=== PATIENT | male | born 1965 | race Caucasian/White ===

== ENCOUNTER 2024-03-22 14:34 | Emergency (ER) | payer OTHER, SELFPAY ==
--- OUTSIDE RECORDS SUMMARY | 2024-03-22 14:36 | XMS_ITS | Encounter Summary ---
Author Organization [facility] Address [address] [place] [address]. [place] [address] Care Team Providers Care Supply Clerk Name Role Phone Doctor, None Primary Care Provider Unavailabl e Fuad Reed MD Primary Care Provider [phone] Fuad Reed MD Unavailable Fuad Reed MD Unavailable Velia Casanova-Nakia Unavailable Fuad Reed MD Unavailable Encounter Details Date Type Department Care Team (Late st Contact Info) Description 04/01/2011 Office Visit-[facility] [address] [place] [address] [place] [address] [place] [address] [address] [place], [place] [id number] Social History Tobacco Use Types Packs/Day Years Used Date Smoking Tobacco: Every Day Cigarettes Smokeless Tobacco: Never Alcohol Use Standard Drinks/Week Comments Yes 0 (1 standard drink = 0.6 oz pur e alcohol) occ Sex and Gender Information Value Date Recorded Sex Assigned at Not on file Legal Sex 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 - Bicuspid Aortic Valve, 746.4 ALLERGIES MEDICATIONS (prior to changes made today) 1. Fish Oil 360-1,200 mg Capsule, 1 p.o. daily 2. multivitamin Capsule, 1 p.o. daily 3. vitamin A 10,000 unit Capsule, Dose/instruction UNKNOWN 4. vitamin A-vitamin C-vit E-min Tablet, 1 p.o. daily 5. Vitamin B-12 100 mcg Tablet, 1 p.o. daily 6. Vitamin B-6 100 mg Tablet, 1 p.o. daily 7. vitamin E 400 unit Tablet, 1 p.o. daily 8. zinc gluconate 30 mg Tablet, 1 p.o. daily CHIEF COMPLAINTS bicuspid aortic valve HISTORY OF PRESENT ILLNESS INDICATION FOR CONSULT: Bicuspid aortic valve. The patient is a 45-year-old with a family history of possible bicuspid aortic valve in his sister who also had presumptive cardiomyopathy. He had also been diagnosed with bicuspid aortic valve on echocardiogram 02/07/11. He comes in to discuss the test results. On that echocardiogram, he did have bicuspid aortic valve with mild regurgitation and no stenosis. He did have a 4.2 cm ascending aorta (dilated.) His LV chamber was not abnormal. There was no pulmonary hypertension. He denies any lower extremity claudication. No symptoms of coarctation. He occasionally gets lightheaded but no significant palpitations. He does have a history of syncopeat the sight of blood. In discussion regarding the bicuspid aortic valve, he did have a mild vasovagal event. He describes previous workup at [facility] where he had what sounds like a transesophageal echocardiogram. It is unclear the circumstances around that event. He denies any history of atrial fibrillation. He denies any dyspnea on exertion or exertional chest discomfort. He does have atypical chest discomfort that may be related to gastritis or reflux. He does note that his atypical chest discomfort isprecipitated by certain types of spicy foods. It is not reproduced with exertion. PAST HISTORY Past Medical Illnesses: headache, smoker Past Cardiac Illnesses: murmur, bicuspid aortic valve, chest pain Surgeries/Procedures - General: rhinoplasty Cardiology Procedures-NonInvasive: echocardiogram Jan 2011 PMHx Echo Results: 01/26 aortic valve is bicuspid, mild AR, ascending aorta mildly dilated Left Ventricular Ejection Fraction: 01/26 60-65% per echo 01/26 60-65% per echo FAMILY HISTORY: Family - sister with bicuspid valve and cardiomyo; SOCIAL HISTORY Alcohol Use - weekends only; Smoking - smokes cigarettes,; Diet - regular diet; Exercise - active at work; Seat Belt Use - always; 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 INTEGUMENTARY denies any change in hair or nails, rashes, or skin lesions. EYES denies diplopia, history of glaucoma or visual field defects. EARS, NOSE, THROAT, MOUTH denies any hearing loss, epistaxis, hoarseness or difficulty speaking. RESPIRATORY denies dyspnea, cough, wheezing or hemoptysis. CARDIOVASCULAR chest pain, once in a while ABDOMINAL denies ulcer disease, hematochezia or melena. MUSCULOSKELETAL arthritis of the right wrist(s) NEUROLOGICAL headaches, effects vision sometimes PSYCHIATRIC denies any history of depression, substance abuse or change in cognitive functions. ENDOCRINE denies any history of thyroid disease or diabetes mellitus. HEMATOLOGICAL/IMMUNOLOGIC denies any food allergies, seasonal allergies, bleeding disorders. PHYSICAL EXAMINATION VITAL SIGNS: Blood Pressure: 122/66Sitting, Left arm, large cuff Pulse- .00/min. Weight- 147.80 lbs. Height- 68.5 CONSTITUTIONAL cooperative, alert and oriented,well developed, well nourished, in no acute distress. SKIN warm and dry to touch, no apparent skin lesions, or masses noted. HEAD normocephalic, atraumatic EYES Pupils equal and round, conjunctivae and lids unremarkable, sclera white, no xanthalasma ENT no pallor or cyanosis, dentition good NECK carotid pulses are full and equal bilaterally, JVP normal, no carotid bruit, no delay of carotid upstroke, no thyromegaly CHEST normal symmetry, no tenderness to palpation, normal respiratory excursion, no intercostal retraction, no use of accessory muscles, clear to auscultation and percussion. CARDIAC regular rhythm, S1 normal, S2 normal, No S3 or S4, grade I/ early peaking systolic murmur at RUSB. I/IV holodiastolic murmur at LLSB. ABDOMEN abdomen soft, bowel sounds normoactive, no masses, no hepatosplenomegaly, non- tender, no bruits PERIPHERAL PULSES pulses full and equal in all extremities, no bruits auscultated. EXTREMITIES & BACK no deformities, clubbing, cyanosis, erythema or edema observed. There are no spinal abnormalities noted. Normal muscle strength and tone. NEUROLOGICAL no gross motor deficits noted, affect anxious, oriented to time, person and place. MEDICATIONS UPDATED/STARTED TODAY: Fish Oil 360-1,200 mg Capsule, 1 p.o. daily, #0 (Zero) multivitamin Capsule, 1 p.o. daily, #0 (Zero) vitamin A 10,000 unit Capsule, Dose/instruction UNKNOWN, #0 (Zero) vitamin A-vitamin C-vit E-min Tablet, 1 p.o. daily, #0 (Zero) Vitamin B-12 100 mcg Tablet, 1 p.o. daily, #0 (Zero) Vitamin B-6 100 mg Tablet, 1 p.o. daily, #0 (Zero) vitamin E 400 unit Tablet, 1 p.o. daily, #0 (Zero) zinc gluconate 30 mg Tablet, 1 p.o. daily, #0 (Zero) IMPRESSIONS/PLAN 1. Bicuspid aortic valve. The patient has bicuspid aortic valve without stenosis. Only mild regurgitation. Would continue to follow this with routine transthoracic echocardiograms yearly until stability is documented. If stable, could space out to every two to three years. More importantly, he doeshave ascending aortic dilatation in the absence of hypertension. I would keep a close eye on his aorta as bicuspid aortic valve is associated with aortopathy with higher propensity towards rupture atsmall dimensions than traditional thoracic aneurysms. I would consider action at around 50-55 mm indiameter. Again, we will recheck in approximately one year. 2. Atypical chest pain, not exertional,could be associated with gastritis or reflux. 3. Nicotine abuse. Urged to quit to avoid blood pressure swings and premature calcification of his aortic valve. 4. We will follow up in one year with a transesophageal echocardiogram. TODAYS ORDERS 1. Return Visit 1 year 2. 2D, color flow, doppler 1 year Ryder De Leon MD documented in this encounter Plan of Treatment Not on file documented as of this encounter Visit Diagnoses Not on filedocumented in this encounter Additional Health Concerns Infection Onset Date Last Indicated Resolved Time Rule Out COVID-19 02/22/2021 02/22/2021 02/22/2021 11:46 PM [employer] COVID-19 02/22/2021 02/22/2021 03/15/2021 11:3 9 PM [employer] documented as of this encounter Care Teams Supply Clerk Relationship Specialty Start Date End Date Josh Montanez MD PCP - General 04/02/01 02/02/13 [place] [address] [place] [id number] PCP - General Family Practice 02/03/13 [place] [address] [place] [id number] PCP - Assigned PCP 05/04/16 04/20/18 [place] [address] [place] [id number] Assigned PCP 05/04/16 08/28/18 Velia Casanova PA-C [address] [place] [address] Assigned PCP 08/29/18 08/20/19 [place] [address] [place] [address] [id number] Assigned PCP 08/21/19 documented as of this encounter
--- OUTSIDE RECORDS SUMMARY | 2024-03-22 14:37 | XMS_ITS | Encounter Summary ---
Author Organization [facility] Address [address] [place] [id number] Care Team Providers Care Engine Buildup Mechanic Name Role Phone Fuad Reed MD Primary Care Provider [phone] Fuad Reed MD Unavailable Reason for Visit * Reason Onset Date Comments Appointment 02/13/2022 Bicuspid aortic valve. Encounter Details Date Type Department Care Team (Late st Contact Info) Description 02/13/2022 Telephone [facility] [id number] [place] [address] [address] [place] [address] None Appointment (Bicuspid aortic valve.) Social History Tobacco Use Types Packs/Day Years Used Date Smoking Tobacco: Every Day Cigarettes 0.3 42 Smokeless Tobacco: Never Comments:since age 13 Alcohol Use Standard Drinks/Week Comments Yes 3 (1 standard drink = 0.6 oz pur e alcohol) 3-6 per week PHQ-2 Answer Date Recorded PHQ-2 Score 0 02/13/2022 Sex and Gender Information Value Date Recorded Sex Assigned at Not on file 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 No / Unsure 02/13/2022 8:38 AM BAG ADJUSTER documented as of this encounter Miscellaneous Notes * Telephone Encounter - Liat Santoyo - 02/13/2022 1:24 PM CST [facility] Call Center Phone Message May a detailed message be left on voicemail: yes Reason for Call: Appointment Intake Referring Provider Name: Dr. Fuad Reed Diagnosis and/or Symptoms: Bicuspid aortic valve Please call pt to coordinate Echo/ appt. Action Taken: Other: cardio Travel Screening: Not Applicable ADJUSTER documented in this encounter Plan of Treatment Not on file documented as of this encounter Visit Diagnoses Not on filedocumented in this encounter Care Teams Engine Buildup Mechanic Relationship Specialty Start Date End Date Fuad Reed MD [address] [place] [id number] PCP - General Family Practice 02/03/13 Fuad Reed MD [address] [place] [id number] Assigned PCP 08/21/19 documented as of this encounter
--- OUTSIDE RECORDS SUMMARY | 2024-03-22 14:37 | XMS_ITS | Clinical Summary ---
Author Organization [facility] Address [address] [place] [address] Care Team Providers Care Sponge Fisherman Name Role Phone Fuad Reed MD Primary Care Provider [phone] Fuad Reed MD Unavailable Allergies No known active allergies Medications Multiple Vitamin (MULTIVITAMIN S) CAPS Take by mouth daily 3 Active VITAMIN E COMPLEX PO Take by mouth daily Active Pyridoxine HCl (VITAMIN B6 PO) Take by mouth daily Active Cyanocobalamin (VITAMIN B-12 PO) Take by mouth daily Active [place]-3 Fatty Acids (OMEGA-3 FISH OIL PO) Take by mouth daily Active ARGININE PO Take by mouth daily Active CREATINE POIndications:E levated prostate specific antigen (PSA) Active fluocinonide (LIDEX) 0.05 % external solution APPLY TOPICALLY TWICE DAILY 0 Active Zinc-Vitamin C (ZINC + VITAMIN C) 20-120 MG LOZG Active Vitamin D, Cholecalciferol , 25 MCG (1000 UT) TABSIndications :Medication monitoring encounter Take 1 tablet (25 mcg) by mouth daily 2 Active Active Problems Patient Care Coordination No te Formatting of this note migh t be different from the original. [email or web address] Problem Noted Date Diagnosed Date Tobacco dependence 02/02/2018 Aortic root dilation 01/31/2016 Tobacco abuse 01/31/2016 Bicuspid aortic valve 02/18/2011 History of cardiac murmur 02/05/2011 Headache 02/05/2011 Overview (11/17/2014): Problem list name updated by automated process. Provider to review CARDIOVASCULAR SCREENING; LDL GOAL LESS THAN 130 Raynaud's syndrome Overview (02/02/2014): mild Colon polyp Overview (03/02/2014): polyp x 1 Ascending aorta dilatation Overview (01/29/2017): Dr De Leon - mild BPH (benign prostatic hyperplasia) Urinary retention Overview (03/23/2017): Dr Nino [place] of multiple sites Resolved Problems Problem Noted Date Diagnosed Date Resolved Date Aortic valve disease 016 Overview (03/07/2014): aortic valve is bicuspid, mild AR, ascending aorta mildly dilated Immunizations Name Administration Dates Next Due Influenza (IIV3) PF 12/01/2016, 6,12/09/2013,2012,12/12/2011,12/04/2010 Influenza Vaccine (Flucelvax Quadrivalent) 12/02/2017 Influenza Vaccine >6 months,quad, PF ,01/11/2021,12/07/2018,2016,11/30/2014 Influenza Vaccine, 6+MO IM (QUADRIVALENT W/PRESERVATIVES) 12/07/2018 Pneumococcal 23 valent 01/29/2017 TD,PF 7+ (Tenivac) 01/26/2006 TDAP Vaccine (Adacel) 02/02/2014 TDAP Vaccine (Boostrix) 02/02/2014 Td (Adult), Adsorbed 01/26/2006 Family History Medical History Relation Comments Other - See Comments Brother disabilitie s Family History Negative Father Family History Negative Mother Cardiovascular Sister 1 cardiomegaly, mu rmur, bicuspid AV ? Colon Cancer No family hx of Coronary Artery Disease No family hx of Diabetes No family hx of Hyperlipidemia No family hx of Hypertension No family hx of Prostate Cancer No family hx of Thyroid Disease No family hx of Relation Status Comments Brother Father (Age 90) Pneumonia Maternal Grandfather Maternal Grandmother Mother (Age 92) Paternal Grandfather Paternal Grandmother Sister 1 Alive Sister 2 Alive Sister 3 Alive Sister 4 Alive Sister 5 Alive Sister 6 Alive Social History Tobacco Use Types Packs/Day Years Used Date Smoking Tobacco: Every Day Cigarettes 0.3 42 Smokeless Tobacco: Never Tobacco Cessation:Counseling Given: No Comments:since age 13 Alcohol Use Standard Drinks/Week Comments Yes 3 (1 standard drink = 0.6 oz pur e alcohol) 3-6 per week PHQ-2 Answer Date Recorded PHQ-2 Score 0 02/13/2022 Adolescent Education Answer Date Record ed Getting School Help Needed Not on file 11/22 Sex and Gender Information Value Date Recorded Sex Assigned at Not on file Legal Sex Male 3:37 AM CELL EFFICIENCY SUPERVISOR Gender Identity Not on file Sexual Orientation Not on file 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 Not on file Not on file Not on file Last Filed Vital Signs Vital Sign Reading Time Taken Comments Blood Pressure 102/60 02/13/2022 9:05 AM CELL EFFICIENCY SUPERVISOR Pulse 69 02/13/2022 9:05 AM CELL EFFICIENCY SUPERVISOR Temperature 36.1 C (97 F) 02/13/2022 9:05 AM CELL EFFICIENCY SUPERVISOR Respiratory Rate 20 10/18/2020 7:07 AM CDT Oxygen Saturation 98% 02/13/2022 9:05 AM CELL EFFICIENCY SUPERVISOR Inhaled Oxygen Concentration - - Weight 67.1 kg (148 lb) 02/13/2022 9:05 AM CELL EFFICIENCY SUPERVISOR Height 172.7 cm (5' 8) 02/13/2022 9:05 AM CELL EFFICIENCY SUPERVISOR Body Mass Index 22.5 02/13/2022 9:05 AM CELL EFFICIENCY SUPERVISOR Plan of Treatment Health Maintenance Due Date Last Done Comments CT COLONOGRAPHY 1965 FLEX SIG 1965 sDNA (Cologuard) 1965 LUNG CANCER SCREENING 10/01/2013 ZOSTER IMMUNIZATION (1 of 2) 10/01/2013 Pneumococcal Vaccine: 50+ Years (2 of 2 - PCV) 01/29/2018 01/29/2017 ANNUAL REVIEW OF HM ORDERS 02/13/2023 02/13/2022 YEARLY PREVENTIVE VISIT 02/13/2023 02/14/20 22, 10/18/2020, 09/20/2019, Additional history exists FIT 02/14/2023 02/14/2022, 08/2020, 11/08/2019, Additional history exists RSV VACCINE (1 - Risk 60-74 years 1-dose series) 2023 COVID-19 Vaccine (1 - 2023- season) 2023 INFLUENZA VACCINE (#1) 2023 , 01/11/2021, 12/07/2018, Additional history exists DTAP/TDAP/TD IMMUNIZATION (3 - Td or Tdap) 02/03/2024 02/02/2014, 02/02/2014, 01/26/2006, Additional history exists PHQ-2 (once per calendar year) 2024 02/13/2022, 02/18/2021, 10/18/2020, Additional history exists ADVANCE CARE PLANNING 09/19/2024 09/20/2019 GLUCOSE 02/13/2025 02/13/2022, 0 03/2020, 09/20/2019, Additional history exists COLONOSCOPY 06/13/2026 06/13/2016, 05/18, 03/02/2014, Additional history exists COLORECTAL CANCER SCREENING 06/13/2026 LIPID 02/13/2027 02/13/2022, 0 03/2020, 09/20/2019, Additional history exists HEPATITIS C SCREENING Completed 02/03/2013 HIV SCREENING Completed 04/28/2016, 02/03/2013 HPV IMMUNIZATION Aged Out No longer e ligible based on patient's age to complete this topic MENINGITIS IMMUNIZATION Aged Out No l onger eligible based on patient's age to complete this topic RSV MONOCLONAL ANTIBODY Aged Out No l onger eligible based on patient's age to complete this topic Procedures Procedure Name Priority Date/Time Associated Diagnosis Comments FECAL COLORECTAL CANCER SCREEN FIT Routine 02/14/2022 9:00 AM CELL EFFICIENCY SUPERVISOR Routine general medical examination at a health care facility Polyp of colon, unspecified part of colon, unspecified type Screen for colon cancer COMPREHENSIVE METABOLIC PANEL Routine 02/13/2022 9:56 AM CELL EFFICIENCY SUPERVISOR Routine general medical examination at a health care facility CARDIOVASCULAR SCREENING; LDL GOAL LESS THAN 130 Osteopenia of multiple sites Raynaud's disease without gangrene Medication monitoring encounter LIPID REFLEX TO DIRECT LDL PANEL Routine 02/13/2022 9:56 AM CELL EFFICIENCY SUPERVISOR Routine general medical examination at a health care facility Bicuspid aortic valve CARDIOVASCULAR SCREENING; LDL GOAL LESS THAN 130 Aortic root dilation Ascending aorta dilatation History of cardiac murmur Medication monitoring encounter COLONOSCOPY Routine 06/13/2016 11:47 AM CDT HIV ANTIGEN ANTIBODY COMBO Routine 04/28/2016 5:28 PM CDT Diarrhea, unspecified type Nausea Stomach cramps, generalized Weight loss HEPATITIS C ANTIBODY Routine 02/03/2013 8:45 AM CELL EFFICIENCY SUPERVISOR Routine general medical examination at a health care facility from Last 3 Months or Most Recently Relevant to Health Maintenance Results * Fecal colorectal cancer screen FIT (02/14/2022 9:00 AM CELL EFFICIENCY SUPERVISOR) Occult Blood Screen FIT Negative Negative 02/18/2022 8:57 PM CELL EFFICIENCY SUPERVISOR [facility] Stool RECTAL CONTENTS / Unknown Non-blood Collection / Unknown 02/14/2022 9:00 AM CELL EFFICIENCY SUPERVISOR 02/18/2022 5:04 PM CELL EFFICIENCY SUPERVISOR us Fuad Reed MD LAB - STOOLS ORDERABLES Final Re sult [facility] [address] [facility], [address] [place] [phone], [facility] [phone] * (ABNORMAL) Lipid panel reflex to direct LDL Fasting (02/13/2022 9:56 AM CELL EFFICIENCY SUPERVISOR) Cholesterol 200(H) <200 mg/dL 02/13/2022 5:34 PM CELL EFFICIENCY SUPERVISOR [facility] Triglycerides 157(H) <150 mg/dL 02/13/2022 5:34 PM CELL EFFICIENCY SUPERVISOR [facility] Direct Measure HDL 45 >=40 mg/dL 02/13/2022 5:34 PM CELL EFFICIENCY SUPERVISOR [facility] LDL Cholesterol Calculated 124(H) <=100 mg/dL 02/13/2022 5:34 PM CELL EFFICIENCY SUPERVISOR [facility] Non HDL Cholesterol 155(H) <130 mg/dL 02/13/2022 5:34 PM CELL EFFICIENCY SUPERVISOR [facility] Blood STRUCTURE OF RIGHT UPPER LIMB / Unknown Venipuncture / Unknown 02/13/2022 9:56 AM CELL EFFICIENCY SUPERVISOR 02/13/2022 9:56 AM CELL EFFICIENCY SUPERVISOR Narrative [facility] - 02/13/2022 5:34 PM CELL EFFICIENCY SUPERVISOR Cholesterol Desirable: <200 mg/dL Triglycerides Normal: Less than 150 mg/dL Borderline High: 150-199 mg/dL High: 200-499 mg/dL Very High: Greater than or equal to 500 mg/dL Direct Measure HDL Female: Greater than or equal to 50 mg/dL Male: Greater than or equal to 40 mg/dL LDL Cholesterol Desirable: <100mg/dL Above Desirable: 100-129 mg/dL Borderline High: 130-159 mg/dL High: 160-189 mg/dL Very High: >= 190 mg/dL Non HDL Cholesterol Desirable: 130 mg/dL Above Desirable: 130-159 mg/dL Borderline High: 160-189 mg/dL High: 190-219 mg/dL Very High: Greater than or equal to 220 mg/dL us Fuad Reed MD LAB - BLOOD ORDERABLES Final Res ult [facility] [facility] [address] [facility], [address] [place] [phone], [facility] [phone] * Comprehensive metabolic panel (02/13/2022 9:56 AM CELL EFFICIENCY SUPERVISOR) Sodium 139 136 - 145 mmol/L 02/13/2022 5:34 PM CELL EFFICIENCY SUPERVISOR [facility] Potassium 4.4 3.4 - 5.3 mmol/L 02/13/2022 5:34 PM CELL EFFICIENCY SUPERVISOR [facility] Chloride 102 98 - 107 mmol/L 02/13/2022 5:34 PM CELL EFFICIENCY SUPERVISOR [facility] Carbon Dioxide (CO2) 24 22 - 29 mmol/L 02/13/2022 5:34 PM CELL EFFICIENCY SUPERVISOR [facility] Anion Gap 13 7 - 15 mmol/L 02/13/2022 5:34 PM CELL EFFICIENCY SUPERVISOR [facility] Urea Nitrogen 12.4 6.0 - 20.0 mg/dL 02/13/2022 5:34 PM CELL EFFICIENCY SUPERVISOR [facility] Creatinine 0.94 0.67 - 1.17 mg/dL 02/13/2022 5:34 PM CELL EFFICIENCY SUPERVISOR [facility] Calcium 9.4 8.6 - 10.0 mg/dL 02/13/2022 5:34 PM CELL EFFICIENCY SUPERVISOR [facility] Glucose 86 70 - 99 mg/dL 02/13/2022 5:34 PM CELL EFFICIENCY SUPERVISOR [facility] Alkaline Phosphatase 68 40 - 129 U/L 02/13/2022 5:34 PM CELL EFFICIENCY SUPERVISOR [facility] AST 23 10 - 50 U/L 02/13/2022 5:34 PM CELL EFFICIENCY SUPERVISOR [facility] ALT 17 10 - 50 U/L 02/13/2022 5:34 PM CELL EFFICIENCY SUPERVISOR [facility] Protein Total 7.1 6.4 - 8.3 g/dL 02/13/2022 5:34 PM CELL EFFICIENCY SUPERVISOR [facility] Albumin 4.4 3.5 - 5.2 g/dL 02/13/2022 5:34 PM CELL EFFICIENCY SUPERVISOR [facility] Bilirubin Total 0.5 <=1.2 mg/dL 02/13/2022 5:34 PM CELL EFFICIENCY SUPERVISOR [facility] GFR Estimate >90 >60 mL/min/1.7 3m2 02/13/2022 5:34 PM CELL EFFICIENCY SUPERVISOR [facility] Comment:Effective January 172020 eGFRcr in adults is calculated using the 2020 CKD-EPI creatinine equation which includes age and gender (Keyanna et al., NEJM, DOI: 10.1056/DOILth9413799) Blood STRUCTURE OF RIGHT UPPER LIMB / Unknown Venipuncture / Unknown 02/13/2022 9:56 AM CELL EFFICIENCY SUPERVISOR 02/13/2022 9:56 AM CELL EFFICIENCY SUPERVISOR us Fuad Reed MD LAB - BLOOD ORDERABLES Final Res ult [facility] [place] [facility] [address] [facility], [address] [place] [phone], [facility] [phone] * COLONOSCOPY (06/13/2016 11:47 AM CDT) COLONOSCOPY [facility] Patient Name: Herrera Choi Procedure Date: 06/13/2016 11:47 AM Date of : 1965 Admit Type: Outpatient Age: 50 Gender: Male Attending MD: Gonzalez Tanner MD Total Sedation Time: __27___minutes continuous bedside 1:1 Instrument Name: 136 Procedure: Colonoscopy Indications: Weight loss Providers: Gonzalez Tanner MD (Doctor) Referring MD: Fuad Reed MD (Referring MD) Medicines: Midazolam 2 mg IV, Fentanyl 100 micrograms IV Complications: No immediate complications. Procedure: Pre-Anesthesia Assessment: - Prior to the procedure, a History and Physical was performed, and patient medications and allergies were reviewed. The patient is competent. The risks and benefits of the procedure and the sedation options and risks were discussed with the patient. All questions were answered and informed consent was obtained. Patient identification and proposed procedure were verified by the physician in the procedure room. Mental Status Examination: alert and oriented. Airway Examination: normal oropharyngeal airway and neck mobility. Respiratory Examination: clear to auscultation. CV Examination: normal. Prophylactic Antibiotics: The patient does not require prophylactic antibiotics. Prior Anticoagulants: The patient has taken no previous anticoagulant or antiplatelet agents. ASA Grade Assessment: II - A patient with mild systemic disease. After reviewing the risks and benefits, the patient was deemed in satisfactory condition to undergo the procedure. The anesthesia plan was to use moderate sedation / analgesia (conscious sedation). Immediately prior to administration of medications, the patient was re-assessed for adequacy to receive sedatives. The heart rate, respiratory rate, oxygen saturations, blood pressure, adequacy of pulmonary ventilation, and response to care were monitored throughout the procedure. The physical status of the patient was re-assessed after the procedure. After obtaining informed consent, the colonoscope was passed under direct vision. Throughout the procedure, the patient's blood pressure, pulse, and oxygen saturations were monitored continuously. The Olympus Peds Colonoscope Model #[id number]-H190L, [place]#[id number], SN#[id number] was introduced through the anus and advanced to the cecum, identified by appendiceal orifice and ileocecal valve. The colonoscopy was performed without difficulty. The patient tolerated the procedure well. The quality of the bowel preparation was good. Findings: The perianal and digital rectal examinations were normal. A few small-mouthed diverticula were found in the sigmoid colon. The exam was otherwise without abnormality on direct and retroflexion views. Impression: - Diverticulosis in the sigmoid colon. - The examination was otherwise normal on direct and retroflexion views. Recommendation: - Repeat colonoscopy in 10 years for screening purposes. Procedure Code(s): --- Professional --- 68309, Colonoscopy, flexible, proximal to splenic flexure; diagnostic, with or without collection of specimen(s) by brushing or washing, with or without colon decompression (separate procedure) Diagnosis Code(s): --- Professional --- R63.4, Abnormal weight loss CPT copyright 2013 [employer]. All rights reserved. The codes documented in this report are preliminary and upon medical coder review may be revised to meet current compliance requirements. Electronically signed by Gonzalez Tanner MD __ Gonzalez Tanner MD 06/13/2016 12:49 PM I was physically present for the entire viewing portion of the exam. Gonzalez Tanner MD Number of Addenda: 0 Note Initiated On: 06/13/2016 11:47 AM Procedure Date: 06/13/2016 11:47:01 AM Scope Withdrawal Time: 0 hours 6 minutes 27 seconds Total Procedure Duration: 0 hours 12 minutes 29 seconds Estimated Blood Loss: Scope In: 12:30:46 PM Scope Out: 12:43:15 PM RADIOLOGY RESULTS 06/13/2016 11:4 7 AM CDT us Fuad Reed MD PROCEDURES Final Result RADIOLOGY RESULTS * HIV Antigen Antibody Combo (04/28/2016 5:28 PM CDT) HIV Antigen Antibody Combo Nonreactive HIV-1 p24 Ag & HIV-1/HIV-2 Ab Not Detected NR [facility] Blood specimen (specimen) 04/28/2016 5:28 PM CDT 04/28/2016 5:34 PM CDT us Fuad Reed MD LAB - BLOOD ORDERABLES Final Res ult Performing Organization Address City/[facility]/ZIP Co de Phone Number [facility] [address] [place] [address] * Hepatitis C antibody (02/03/2013 8:45 AM CELL EFFICIENCY SUPERVISOR) Hepatitis C Antibody Negative NEG [facility] Blood specimen (specimen) 02/03/2013 8:45 AM CELL EFFICIENCY SUPERVISOR 02/03/2013 8:46 AM CELL EFFICIENCY SUPERVISOR us Fuad Reed MD LAB - BLOOD ORDERABLES Final Res ult Performing Organization Address City/[facility]/ZIP Co de Phone Number [facility] [address] [place] [address], [facility] from Last 3 Months or Most Recently Relevant to Health Maintenance Insurance BCBS OUT OF STATE Care Teams Sponge Fisherman Relationship Specialty Start Date End Date Fuad Reed MD [address] [place] [id number] PCP - General Family Practice 02/03/13 Fuad Reed MD [address] [place] [address] [id number] Assigned PCP 08/21/19
--- OUTSIDE RECORDS SUMMARY | 2024-03-22 14:37 | XMS_ITS | Encounter Summary ---
Author Organization [facility] Address [address] [place] [address] Care Team Providers Care Chief Investment Officer Name Role Phone Doctor, None Primary Care Provider Unavailabl e Fuad Reed MD Primary Care Provider [phone] Fuad Reed MD Unavailable Fuad Reed MD Unavailable Velia Casanova PA-C Unavailable Fuad Reed MD Unavailable Encounter Details Date Type Department Care Team (Late st Contact Info) Description 01/29/2012 [facility] [address] [phone] [facility] Social History Tobacco Use Types Packs/Day Years Used Date Smoking Tobacco: Every Day Cigarettes Smokeless Tobacco: Never Alcohol Use Standard Drinks/Week Comments Yes 0 (1 standard drink = 0.6 oz pur e alcohol) occ Sex and Gender Information Value Date Recorded Sex Assigned at Not on file Legal Sex Male 3:37 AM SCRAP SEPARATOR Gender Identity Not on file Sexual Orientation Not on file documented as of this encounter Plan of Treatment Not on file documented as of this encounter Visit Diagnoses Not on filedocumented in this encounter Additional Health Concerns Infection Onset Date Last Indicated Resolved Time Rule Out COVID-19 02/22/2021 02/22/2021 02/22/2021 11:46 PM SCRAP SEPARATOR COVID-19 02/22/2021 02/22/2021 03/15/2021 11:3 9 PM SCRAP SEPARATOR documented as of this encounter Care Teams Chief Investment Officer Relationship Specialty Start Date End Date Josh Montanez MD PCP - General 04/02/01 02/02/13 Fuad Reed MD [address] [place] [id number] PCP - General Family Practice 02/03/13 Fuad Reed MD [address] [place] [id number] PCP - Assigned PCP 05/04/16 04/20/18 Fuad Reed MD [address] [place] [address] Assigned PCP 05/04/16 08/28/18 Velia Casanova PA-C [id number] [place] [address] Assigned PCP 08/29/18 08/20/19 Fuad Reed MD [address] [place] [id number] Assigned PCP 08/21/19 documented as of this encounter
--- OUTSIDE RECORDS SUMMARY | 2024-03-22 14:37 | XMS_ITS | Encounter Summary ---
Author Organization [facility] Address [address] [place] [address] Care Team Providers Care Pinner Printed Circuit Boards Name Role Phone None Reported, Pcp Primary Care Provider Unavail able Encounter Details Date Type Department Care Team (Latest Contact Info) Description 02/05/2024 10:48 AM COAGULATOR - 02/05/2024 11:59 PM COAGULATOR Hospital Encounter Department of Laboratory Medicine in [place], [place] [address] [place] [address] Jaya Little M.D., Ph.D. [address] [phone] Other Chest Pain Discharge Disposition: Home or Self Care Social History Tobacco Use Types Packs/Day Years Used Date Smoking Tobacco: Every Day Cigarettes Alcohol Use Standard Drinks/Week Comments Yes 0 (1 standard drink = 0.6 oz pur e alcohol) weekends Dental Answer Date Recorded Dental: Regular Dentist Unknown 11/30/19 23 Sex and Gender Information Value Date Recorded Sex Assigned at Not on file Legal Sex Male 4:52 PM COAGULATOR Gender Identity Not on file Sexual Orientation Not on file documented as of this encounter Medications at Time of Discharge ascorbic acid, vitamin C, (Vitamin C) 100 mg tablet Take 1 tablet by mouth daily. 01/26/2006 atorvastatin (Lipitor) 20 mg tablet Take 1 tablet by mouth at bedtime. 03/30/2023 03/29/2024 pyridoxine, vitamin B6, (Vitamin B-6) 50 mg tablet Take 1 tablet by mouth daily. 01/26/2006 documented as of this encounter Plan of Treatment Not on file documented as of this encounter Procedures Procedure Name Priority Date/Time Associated Diagnosis Comments CREATININE WITH EGFR, S/P Routine 02/05/2024 10:54 AM COAGULATOR Other Chest Pain documented in this encounter Results * Creatinine with Estimated GFR (02/05/2024 10:54 AM COAGULATOR) Creatinine 0.88 0.74 - 1.35 mg/dL 02/05/2024 11:41 AM COAGULATOR NPR[facility] Estimated GFR (eGFR) >90 >=60 mL/min/BSA 02/05/2024 11:41 AM COAGULATOR NPRG Comment: Estimated GFR calculated using the 2020 CKD_EPI creatinine equation. Blood (Blood, Venous) 02/05/2024 10:54 AM COAGULATOR 02/05/2024 11:17 AM COAGULATOR us Jaya Little M.D., Ph.D. LAB BLOOD ADD-ON Final Result [facility] [address] [place] [address], [place] NPRG [facility] [address] [place] [address] documented in this encounter Visit Diagnoses Diagnosis Other Chest Pain documented in this encounter Care Teams [employer] Bo[employer] Relationship Specialty Start Date End Date None Reported, Pcp PCP - General Family Medicine 11/06/23 documented as of this encounter
--- OUTSIDE RECORDS SUMMARY | 2024-03-22 14:37 | XMS_ITS | Encounter Summary ---
Author Organization [facility] Address [address] [place] [address] Care Team Providers Care Labor Arbitrator Name Role Phone Doctor, None Primary Care Provider Unavailabl e Fuad Reed MD Primary Care Provider [phone] Fuad Reed MD Unavailable Fuad Reed MD Unavailable Velia Casanova PA-C Unavailable Fuad Reed MD Unavailable Encounter Details Date Type Department Care Team (Late st Contact Info) Description 02/11/2012 [facility] [address] [address] [facility] Social History Tobacco Use Types Packs/Day Years Used Date Smoking Tobacco: Every Day Cigarettes Smokeless Tobacco: Never Alcohol Use Standard Drinks/Week Comments Yes 0 (1 standard drink = 0.6 oz pur e alcohol) occ Sex and Gender Information Value Date Recorded Sex Assigned at Not on file Legal Sex Male 3:37 AM PEOPLESOFT CRM DEVELOPER Gender Identity Not on file Sexual Orientation Not on file documented as of this encounter Plan of Treatment Not on file documented as of this encounter Visit Diagnoses Not on filedocumented in this encounter Additional Health Concerns Infection Onset Date Last Indicated Resolved Time Rule Out COVID-19 02/22/2021 02/22/2021 02/22/2021 11:46 PM PEOPLESOFT CRM DEVELOPER COVID-19 02/22/2021 02/22/2021 03/15/2021 11:3 9 PM PEOPLESO[employer] CRM DEVELOPER documented as of this encounter Care Teams Labor Arbitrator Relationship Specialty Start Date End Date Josh Montanez MD PCP - General 04/02/01 02/02/13 Fuad Reed MD [address] [place] [id number] PCP - General Family Practice 02/03/13 Fuad Reed MD [address] [place] [address] PCP - Assigned PCP 05/04/16 04/20/18 Fuad Reed MD [address] [place] [id number] Assigned PCP 05/04/16 08/28/18 Velia Casanova PA-C [id number] [place] [address] Assigned PCP 08/29/18 08/20/19 Fuad Reed MD [address] [place] [id number] Assigned PCP 08/21/19 documented as of this encounter
--- OUTSIDE RECORDS SUMMARY | 2024-03-22 14:37 | XMS_ITS | Referral Summary ---
Author Organization [facility] Address [address] [place] [address] Care Team Providers Care Powder Line Repairer Name Role Phone Fuad Reed MD Primary Care Provider [phone] Fuad Reed MD Unavailable Allergies No known active allergies Medications Multiple Vitamin (MULTIVITAMIN S) CAPS Take by mouth daily 3 Active VITAMIN E COMPLEX PO Take by mouth daily Active Pyridoxine HCl (VITAMIN B6 PO) Take by mouth daily Active Cyanocobalamin (VITAMIN B-12 PO) Take by mouth daily Active [place]-3 Fatty Acids (OMEGA-3 FISH OIL PO) Take [...] Vaccine (Boostrix) 02/02/2014 Td (Adult), Adsorbed 01/26/2006 Social History Tobacco Use Types Packs/Day Years [...] on file Legal Sex Male 3:37 AM SOFT DRINK POWDER MIXER Gender Identity Not on file Sexual Orientation Not on file 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 Not on file Not on file Not on file Last Filed Vital Signs Vital Sign Reading Time Taken Comments Blood Pressure 102/60 02/13/2022 9:05 AM SOFT DRINK POWDER MIXER Pulse 69 02/13/2022 9:05 AM SOFT DRINK POWDER MIXER Temperature 36.1 C (97 F) 02/13/2022 9:05 AM SOFT DRINK POWDER MIXER Respiratory Rate 20 10/18/2020 7:07 AM CDT Oxygen Saturation 98% 02/13/2022 9:05 AM SOFT DRINK POWDER MIXER Inhaled Oxygen Concentration - - Weight 67.1 kg (148 lb) 02/13/2022 9:05 AM SOFT DRINK POWDER MIXER Height 172.7 cm (5' 8) 02/13/2022 9:05 AM SOFT DRINK POWDER MIXER Body Mass Index 22.5 02/13/2022 9:05 AM SOFT DRINK POWDER MIXER Plan of Treatment Not on file Procedures Procedure Name Priority Date/Time Associated Diagnosis Comments FECAL COLORECTAL CANCER SCREEN FIT Routine 02/14/2022 9:00 AM SOFT DRINK POWDER MIXER Routine general medical examination at a health care facility Polyp of colon, unspecified part of colon, unspecified type Screen for colon cancer COMPREHENSIVE METABOLIC PANEL Routine 02/13/2022 9:56 AM SOFT DRINK POWDER MIXER Routine general medical examination at a health care facility CARDIOVASCULAR SCREENING; LDL GOAL LESS THAN 130 Osteopenia of multiple sites Raynaud's disease without gangrene Medication monitoring encounter LIPID REFLEX TO DIRECT LDL PANEL Routine 02/13/2022 9:56 AM SOFT DRINK POWDER MIXER Routine general medical examination at a health care facility Bicuspid aortic valve CARDIOVASCULAR SCREENING; LDL GOAL LESS THAN 130 Aortic root dilation Ascending aorta dilatation History of cardiac murmur Medication monitoring encounter COLONOSCOPY Routine 06/13/2016 11:47 AM CDT HIV ANTIGEN ANTIBODY COMBO Routine 04/28/2016 5:28 PM CDT Diarrhea, unspecified type Nausea Stomach cramps, generalized Weight loss HEPATITIS C ANTIBODY Routine 02/03/2013 8:45 AM SOFT DRINK POWDER MIXER Routine general medical examination at a health care facility from Last 3 Months or Most Recently Relevant to Health Maintenance Results * Fecal colorectal cancer screen FIT (02/14/2022 9:00 AM SOFT DRINK POWDER MIXER) Occult Blood Screen FIT Negative Negative 02/18/2022 8:57 PM SOFT DRINK POWDER MIXER [facility] Stool RECTAL CONTENTS / Unknown Non-blood Collection / Unknown 02/14/2022 9:00 AM SOFT DRINK POWDER MIXER 02/18/2022 5:04 PM SOFT DRINK POWDER MIXER us Fuad Reed MD LAB - STOOLS ORDERABLES Final Re sult [facility] Lab [address] [facility], [address] [phone], [facility] [phone] * (ABNORMAL) Lipid panel reflex to direct LDL Fasting (02/13/2022 9:56 AM SOFT DRINK POWDER MIXER) Cholesterol 200(H) <200 mg/dL 02/13/2022 5:34 PM SOFT DRINK POWDER MIXER [facility] Triglycerides 157(H) <150 mg/dL 02/13/2022 5:34 PM SOFT DRINK POWDER MIXER [facility] Direct Measure HDL 45 >=40 mg/dL 02/13/2022 5:34 PM SOFT DRINK POWDER MIXER [facility] LDL Cholesterol Calculated 124(H) <=100 mg/dL 02/13/2022 5:34 PM SOFT DRINK POWDER MIXER [facility] Non HDL Cholesterol 155(H) <130 mg/dL 02/13/2022 5:34 PM SOFT DRINK POWDER MIXER [facility] Blood STRUCTURE OF RIGHT UPPER LIMB / Unknown Venipuncture / Unknown 02/13/2022 9:56 AM SOFT DRINK POWDER MIXER 02/13/2022 9:56 AM SOFT DRINK POWDER MIXER Narrative [facility] - 02/13/2022 5:34 PM SOFT DRINK POWDER MIXER Cholesterol Desirable: <200 mg/dL Triglycerides Normal: Less [...] BLOOD ORDERABLES Final Res ult [facility] [address] [facility], [address] [place] [id number], [facility] [phone] * Comprehensive metabolic panel (02/13/2022 9:56 AM SOFT DRINK POWDER MIXER) Sodium 139 136 - 145 mmol/L 02/13/2022 5:34 PM SOFT DRINK POWDER MIXER [facility] Potassium 4.4 3.4 - 5.3 mmol/L 02/13/2022 5:34 PM SOFT DRINK POWDER MIXER [facility] Chloride 102 98 - 107 mmol/L 02/13/2022 5:34 PM SOFT DRINK POWDER MIXER [facility] Carbon Dioxide (CO2) 24 22 - 29 mmol/L 02/13/2022 5:34 PM SOFT DRINK POWDER MIXER [facility] Anion Gap 13 7 - 15 mmol/L 02/13/2022 5:34 PM SOFT DRINK POWDER MIXER [facility] Urea Nitrogen 12.4 6.0 - 20.0 mg/dL 02/13/2022 5:34 PM SOFT DRINK POWDER MIXER [facility] Creatinine 0.94 0.67 - 1.17 mg/dL 02/13/2022 5:34 PM SOFT DRINK POWDER MIXER [facility] Calcium 9.4 8.6 - 10.0 mg/dL 02/13/2022 5:34 PM SOFT DRINK POWDER MIXER [facility] Glucose 86 70 - 99 mg/dL 02/13/2022 5:34 PM SOFT DRINK POWDER MIXER [facility] Alkaline Phosphatase 68 40 - 129 U/L 02/13/2022 5:34 PM SOFT DRINK POWDER MIXER [facility] AST 23 10 - 50 U/L 02/13/2022 5:34 PM SOFT DRINK POWDER MIXER [facility] ALT 17 10 - 50 U/L 02/13/2022 5:34 PM SOFT DRINK POWDER MIXER [facility] Protein Total 7.1 6.4 - 8.3 g/dL 02/13/2022 5:34 PM SOFT DRINK POWDER MIXER [facility] Albumin 4.4 3.5 - 5.2 g/dL 02/13/2022 5:34 PM SOFT DRINK POWDER MIXER [facility] Bilirubin Total 0.5 <=1.2 mg/dL 02/13/2022 5:34 PM SOFT DRINK POWDER MIXER [facility] GFR Estimate >90 >60 mL/min/1.7 3m2 02/13/2022 5:34 PM SOFT DRINK POWDER MIXER [facility] Comment:Effective January 172020 eGFRcr in adults is calculated using the 2020 CKD-EPI creatinine equation which includes age and gender (Keyanna et al., NEJM, DOI: 10.1056/MMKHsi8361793) Blood STRUCTURE OF RIGHT UPPER LIMB / Unknown Venipuncture / Unknown 02/13/2022 9:56 AM SOFT DRINK POWDER MIXER 02/13/2022 9:56 AM SOFT DRINK POWDER MIXER us Fuad Reed MD LAB - BLOOD ORDERABLES Final Res ult [facility] Core Lab [address] [facility], [address] [address], [facility] [phone] * COLONOSCOPY (06/13/2016 11:47 AM CDT) [facility] Signature COLONOSCOPY [facility] Patient Name: Herrera Choi Procedure Date: 06/13/2016 [...] The Olympus Peds Colonoscope Model #[id number]-H190L, [place]#136, SN#[id number] was introduced through the anus and advanced [...] screening purposes. Procedure Code(s): --- Professional --- 74134, Colonoscopy, flexible, proximal to splenic flexure; diagnostic, with or without collection of specimen(s) by brushing or washing, with or without colon decompression (separate procedure) Diagnosis Code(s): --- Professional --- R63.4, Abnormal weight loss CPT copyright 2013 [employer]. All rights reserved. The codes documented in this report are preliminary and upon band sawing machine operator review may be revised to meet current [...] Ag & HIV-1/HIV-2 Ab Not Detected NR [facility] Blood specimen (specimen) 04/28/2016 5:28 PM CDT 04/28/2016 5:34 PM CDT Fuad Reed MD LAB - BLOOD ORDERABLES Final Res ult Performing Organization Address [facility] Co de Phone Number [facility] [address] [place] [address] * Hepatitis C antibody (02/03/2013 8:45 AM SOFT DRINK POWDER MIXER) Hepatitis C Antibody Negative [facility]G [facility] Blood specimen (specimen) 02/03/2013 8:45 AM SOFT DRINK POWDER MIXER 02/03/2013 8:46 AM SOFT DRINK POWDER MIXER us Fuad Reed MD LAB - BLOOD ORDERABLES Final Res ult Performing Organization Address [facility] de Phone Number [address] from Last 3 Months or Most Recently Relevant to Health Maintenance Insurance [facility] OUT OF STATE Care Teams Powder Line Repairer Relationship Specialty Start Date End Date Fuad Reed MD [address] [place] [id number] PCP - General Family Practice 02/03/13 Fuad Reed MD [address] [place] [address] Assigned PCP 08/21/19
--- OUTSIDE RECORDS SUMMARY | 2024-03-22 14:37 | XMS_ITS | Encounter Summary ---
Author Organization [facility] Address [address] [place] [address] Care Team Providers Care Chinchilla Machine Operator Name Role Phone Fuad Reed MD Primary Care Provider [phone] Fuad Reed MD Unavailable Reason for Visit * Reason Onset Date Comments Call To Schedule Appointment 10/17/2019 Lef t message to schedule DEXA Encounter Details Date Type Department Care Team (Late st Contact Info) Description 10/17/[address] [phone] [place] [address] [place] [id number] Call To Schedule Appointment (Left message to schedule DEXA) Social History Tobacco Use Types Packs/Day Years Used Date Smoking Tobacco: Every Day Cigarettes 0.3 40 Smokeless Tobacco: Never Comments:since age 13 Alcohol Use Standard Drinks/Week Comments Yes 3 (1 standard drink = 0.6 oz pur e alcohol) 3-6 per week PHQ-2 Answer Date Recorded PHQ-2 Score 0 09/20/2019 Sex and Gender Information Value Date Recorded Sex Assigned at Not on file Legal Sex Male 3:37 AM PROCESS SUPERVISOR Gender Identity Not on file Sexual Orientation Not on file 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 No / Unsure 09/20/2019 10:02 AM CDT documented as of this encounter Plan of Treatment Not on file documented as of this encounter Visit Diagnoses Not on filedocumented in this encounter Additional Health Concerns Infection Onset Date Last Indicated Resolved Time Rule Out COVID-19 02/22/2021 02/22/2021 02/22/2021 11:46 PM PROCESS SUPERVISOR COVID-19 02/22/2021 02/22/2021 03/15/2021 11:3 9 PM PROCESS SUPERVISOR documented as of this encounter Care Teams Chinchilla Machine Operator Relationship Specialty Start Date End Date Fuad Reed MD [address] [place] [id number] PCP - General Family Practice 02/03/13 Fuad Reed MD [address] [place] [address] Assigned PCP 08/21/19 documented as of this encounter
--- OUTSIDE RECORDS SUMMARY | 2024-03-22 14:37 | XMS_ITS | Encounter Summary ---
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 No / Unsure 03/31/2022 1:54 PM CLIENT ADVISOR documented as of this encounter Plan of Treatment Not on file documented as of this encounter Visit Diagnoses Not on filedocumented in this encounter Care Teams Casino Investigator Relationship Specialty Start Date End Date Fuad Reed MD [address] [place] [address] PCP - General Family Practice 02/03/13 Fuad Reed MD [address] [place] [address] Assigned PCP 08/21/19 documented as of this encounter
--- OUTSIDE RECORDS SUMMARY | 2024-03-22 14:37 | XMS_ITS | Encounter Summary ---
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 No / Unsure 03/31/2022 1:54 PM PRODUCTION BORING MACHINE OPERATOR documented as of this encounter Plan of Treatment Not on file documented as of this encounter Visit Diagnoses Not on filedocumented in this encounter Care Teams Carton Filler Relationship Specialty Start Date End Date Fuad Reed MD [address] [place] [address] PCP - General Family Practice 02/03/13 Fuad Reed MD [address] [place] [address] Assigned PCP 08/21/19 documented as of this encounter
--- OUTSIDE RECORDS SUMMARY | 2024-03-22 14:37 | XMS_ITS | Clinical Summary ---
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 For routine questions regarding patient records, call [phone] during business hours, M-F 8:00 AM - 5:00 PM Central Time. Record requests for emergency care only can be directed to [phone] at any time.[facility] Allergies No known active allergies Medications EPINEPHrine 0.3 mg/0.3 mL injection syringe Inject 0.3 mL (0.3 mg total) intramuscularly as needed for anaphylaxis for up to 10 days. Inject into the thigh. 2 each 1 11/30/19 23 Active atorvastatin (Lipitor) 20 mg tablet Take 1 tablet by mouth at bedtime. 03/30/19 24 025 Active ascorbic acid, vitamin C, (Vitamin C) 100 mg tablet Take 1 tablet by mouth daily. 01/27/20 06 Active pyridoxine, vitamin B6, (Vitamin B-6) 50 mg tablet Take 1 tablet by mouth daily. 01/27/20 06 Active Active Problems Problem Noted Date Diagnosed Date Dizziness 11/23/2023 Headache Unspecified 11/23/2023 Encounters Date Type Department Care Team Description 02/05/2024 10:48 AM ELECTROLYSIS INVESTIGATOR - 02/05/2024 11:59 PM ELECTROLYSIS INVESTIGATOR Hospital Encounter Department of Laboratory Medicine in [place], [place] [address] [place] [id number] Jaya Little M.D., Ph.D. Other Chest Pain Discharge Disposition: Home or Self Care 12/28/2023 1:12 PM ELECTROLYSIS INVESTIGATOR - 12/28/2023 11:59 PM ELECTROLYSIS INVESTIGATOR Hospital Encounter Department of Cardiovascular Diseases in [address] [id number] Nathan Allen M.D. Bicuspid Aortic Valve (HCC) Discharge Disposition: Home or Self Care from Last 3 Months Social History Tobacco Use Types Packs/Day Years Used Date Smoking Tobacco: Every Day Cigarettes Tobacco Cessation:Ready to Q uit: Not Asked; Counseling Given: Not Answered Alcohol Use Standard Drinks/Week Comments Yes 0 (1 standard drink = 0.6 oz pur e alcohol) weekends Dental Answer Date Recorded Dental: Regular Dentist Unknown 11/30/19 Sex and Gender Information Value Date Recorded Sex Assigned at Not on file Legal Sex Male 4:52 PM ELECTROLYSIS INVESTIGATOR Gender Identity Not on file Sexual Orientation Not on file Last Filed Vital Signs Vital Sign Reading Time Taken Comments Blood Pressure 107/67 11/06/2023 12:31 PM CDT Pulse 52 11/06/2023 12:22 PM CDT Temperature 36.6 C (97.9 F) 11/06/2023 10:21 AM CDT Respiratory Rate 19 11/06/2023 12:22 PM CDT Oxygen Saturation 98% 11/06/2023 12:22 PM CDT Inhaled Oxygen Concentration - - Weight 63 kg (139 lb) 11/06/2023 10:22 AM CDT Height 170.2 cm (5' 7) 11/06/2023 10:22 AM CDT Body Mass Index 21.77 11/06/2023 10:22 AM CDT Plan of Treatment Health Maintenance Due Date Last Done Comments CT Colonography 1963 Cologuard 1963 FIT 1965 HIV Screening 1965 Hepatitis C Screening 1963 Tobacco Cessation counseling 1963 Zoster Vaccines (1 of 2) 10/01/2013 COVID-19 Vaccine ( - season) 2023 Influenza Vaccine (#1) 2023 , 01/10/2022, 01/11/2021, Additional history exists Depression Screening (Annual PHQ-2) 02/17/2024 Colonoscopy 06/13/2026 06/13/2016 Colorectal Cancer Screening 06/13/2026 Fasting Glucose for Diabetes Screening 11/05/2026 11/06/2023, 02/13/2022, 10/18/2020, Additional history exists Lipid (Cholesterol) Screening 02/13/2027 02/13/2022, 10/18/2020, 09/20/2019, Additional history exists DTaP,Tdap,and Td Vaccines (3 - Td or Tdap) 01/12/2034 01/13/2024, 02/02/2014, 01/26/2006 Pneumococcal vaccine (50+ years) Completed 02/04/2023, 01/29/2017 Hepatitis B Vaccines Aged Out No long er eligible based on patient's age to complete this topic IPV Vaccines Aged Out No longer eligi ble based on patient's age to complete this topic Procedures Procedure Name Priority Date/Time Associated Diagnosis Comments CREATININE WITH EGFR, S/P Routine 02/05/2024 10:54 AM ELECTROLYSIS INVESTIGATOR Other Chest Pain (TTE) 2D ECHO DOPPLER COLOR Routine 12/28/2023 2:40 PM ELECTROLYSIS INVESTIGATOR Bicuspid Aortic Valve (HCC) COMPREHENSIVE METABOLIC PANEL, S/P STAT 11/06/2023 10:51 AM CDT from Last 3 Months or Most Recently Relevant to Health Maintenance Results * Creatinine with Estimated GFR (02/05/2024 10:54 AM ELECTROLYSIS INVESTIGATOR) Creatinine 0.88 0.74 - 1.35 mg/dL 02/05/2024 11:41 AM ELECTROLYSIS INVESTIGATOR NPRG Estimated GFR (eGFR) >90 >=60 mL/min/BSA 02/05/2024 11:41 AM ELECTROLYSIS INVESTIGATOR NPRG Comment: Estimated GFR calculated using the 2020 CKD_EPI creatinine equation. Blood (Blood, Venous) 02/05/2024 10:54 AM ELECTROLYSIS INVESTIGATOR 02/05/2024 11:17 AM ELECTROLYSIS INVESTIGATOR us Jaya Little M.D., Ph.D. LAB BLOOD ADD-ON Final Result [facility] [address] [place] [address], [facility] NPRG [facility] [address] [place] [address] * (TTE) 2D ECHO DOPPLER COLOR (12/28/2023 2:40 PM ELECTROLYSIS INVESTIGATOR) Ejection Fraction 67 MC CV EIMS Sinus of Valsalva 42 MC CV EIMS Sinotubular Junction 41 MC CV EIMS Aortic arch 23 MC CV EIMS Proximal Ascending Aorta 47 MC CV EIMS Mid-Ascending Aorta 47 MC CV EIMS LV Mass Index 98 MC CV EIMS LV End-Diastolic Diameter 47 MC CV EIMS LV End-Systolic Diameter 30 MC CV EIMS LV End-Diastolic Volume 145 MC CV EIMS LV End-Systolic Volume 51 MC CV EIMS MV E Velocity 0.6 MC CV EIMS MV A Velocity 0.6 MC CV EIMS MV E/A 1 MC CV EIMS MV e' Velocity Medial 0.12 MC CV EIMS MV e' Velocity Lateral 0.16 MC CV EIMS MV E/e' Medial 5 MC CV EIMS MV E/e' Lateral 3.8 MC CV EIMS Left ventricular stroke volume index 64 MC CV EIMS Cardiac Output 7.13 MC CV EIMS Cardiac Index 4 MC CV EIMS LV Interventricular Septal Wall Thickness 11 MC CV EIMS LV Posterior Wall Thickness 10 MC CV EIMS LV Relative Wall Thickness 43 MC CV EIMS RV 4-Chamber Basal Diameter 40 MC CV EIMS RV 4-Chamber Mid Diameter 34 MC CV EIMS TAPSE 28 MC CV EIMS Tricuspid Annular S 0.16 MC CV EIMS TR Vmax 2.4 MC CV EIMS RA Pressure 5 MC CV EIMS RV Systolic Pressure 28 MC CV EIMS AV mean gradient 9 MC CV EIMS Aortic valve area 2.63 MC CV EIMS Aortic Valve Area Index 1.48 MC CV EIMS Aortic Valve Dimensionless Index 0.58 MC CV EIMS LA Volume Index 34 MC CV EIMS Aortic Valve Systolic Peak Velocity 2.1 MC CV EIMS Anatomical Region Laterality Modality Echocardiography 12/28/2023 1:13 PM ELECTROLYSIS INVESTIGATOR Impressions 12/28/2023 3:17 PM ELECTROLYSIS INVESTIGATOR Transthoracic outreach echo interpretation. LEFT VENTRICLE:Normal left ventricular chamber size. Abnormal left ventricular geometry with borderline concentric remodeling (increased wall thickness to cavity ratio). Calculated 3-D volumetric left ventricular ejection fraction 67%. No regional wall motion abnormalities. Normal left ventricular diastolic function. RIGHT VENTRICLE:Normal right ventricular chamber size. Normal right ventricular systolic function. Estimated right ventricular systolic pressure 28 mmHg (right atrial pressure of 5 mmHg). ATRIA:Normal left atrial size. Left atrial volume index 34 ml/m2. Normal right atrial size. CARDIAC VALVES:Bicuspid aortic valve with a raphae and fusion of the left and right coronary cusps. No aortic valve stenosis. Aortic valve systolic mean Doppler gradient 9 mmHg. Aortic valve area by Doppler 2.63 cm2. Mild aortic valve regurgitation. Mildly thickened mitral valve. Mitral chordal systolic anterior motion. Trivial mitral valve regurgitation. Normal pulmonary valve. Normal pulmonary valve systolic velocities. Trivial pulmonary valve regurgitation. Normal tricuspid valve. Trivial tricuspid valve regurgitation. OTHER ECHO FINDINGS:Normal inferior vena cava size with normal inspiratory collapse (>50%). Mildly enlarged sinus of Valsalva diameter of 42 mm. Upper limit of normal of the sinus of Valsalva for age, sex and BSA is 40 mm. Enlarged proximal ascending aorta diameter of 47 mm. Moderately enlarged mid ascending aorta diameter of 47 mm. Upper limit of normal of the mid ascending aorta, for age, sex and BSA is 38 mm. Abdominal aorta incompletely visualized. Normal abdominal aorta Doppler flow pattern. No atrial level shunt by color flow imaging. Patent foramen ovale noted on outside echocardiogram 03/18/23 (on agitated saline contrast study). No intracardiac mass or thrombus, but the left atrial appendage cannot be visualized adequately with transthoracic echo to exclude thrombus in this location. No pericardial effusion. For the complete report, see the Order-Level Documents. Narrative 12/28/2023 3:17 PM ELECTROLYSIS INVESTIGATOR For the complete report, see the Order-Level Documents. Hemodynamics Heart Rate: 71 BPM Blood Pressure: 111 / 73 mmHg ECG: Sinus rhythm Final Impressions 1. Transthoracic outreach echo interpretation. 2. Moderately enlarged mid ascending aorta diameter of 47 mm, upper limit of normal for age, sex and BSA is 38 mm . Enlarged proximal ascending aorta diameter of 47 mm. Mildly enlarged sinus of Valsalva diameter of 42 mm (upper limits of normal 40 mm). 3. Bicuspid aortic valve with a raphae and fusion of the left and right coronary cusps. No significant stenosis. Mild aortic regurgitation. 4. Normal left ventricular chamber size, no regional wall motion abnormalities, calculated 3-D volumetric ejection fraction 67%. 5. Abnormal left ventricular geometry with borderline concentric remodeling (increased wall thickness to cavity ratio), normal diastolic function. 6. Normal right ventricular chamber size, normal systolic function, estimated right ventricular systolic pressure 28 mmHg (right atrial pressure of 5 mmHg). 7. No pericardial effusion. 8. There are no previous [facility] echocardiograms available for comparison. Procedure Note Aleksander Pierson M.D. - 12/28/2023 For the complete report, see the Order-Level Documents. Hemodynamics Heart Rate: 71 BPM Blood Pressure: 111 / 73 mmHg ECG: Sinus rhythm Final Impressions 1. Transthoracic outreach echo interpretation. 2. Moderately enlarged mid ascending aorta diameter of 47 mm, upper limitof normal for age, sex and BSA is 38 mm . Enlarged proximal ascendingaorta diameter of 47 mm. Mildly enlarged sinus of Valsalva diameter of 42mm (upper limits of normal 40 mm). 3. Bicuspid aortic valve with a raphae and fusion of the left and rightcoronary cusps. No significant stenosis. Mild aortic regurgitation. 4. Normal left ventricular chamber size, no regional wall motionabnormalities, calculated 3-D volumetric ejection fraction 67%. 5. Abnormal left ventricular geometry with borderline concentricremodeling (increased wall thickness to cavity ratio), normal diastolicfunction. 6. Normal right ventricular chamber size, normal systolic function,estimated right ventricular systolic pressure 28 mmHg (right atrialpressure of 5 mmHg). 7. No pericardial effusion. 8. There are no previous [facility] echocardiograms available forcomparison. Findings Transthoracic outreach echo interpretation. LEFT VENTRICLE:Normal left ventricular chamber size. Abnormal leftventricular geometry with borderline concentric remodeling (increased wallthickness to cavity ratio). Calculated 3-D volumetric left ventricularejection fraction 67%. No regional wall motion abnormalities. Normal leftventricular diastolic function. RIGHT VENTRICLE:Normal right ventricular chamber size. Normal rightventricular systolic function. Estimated right ventricular systolicpressure 28 mmHg (right atrial pressure of 5 mmHg). ATRIA:Normal left atrial size. Left atrial volume index 34 ml/m2. Normalright atrial size. CARDIAC VALVES:Bicuspid aortic valve with a raphae and fusion of the leftand right coronary cusps. No aortic valve stenosis. Aortic valve systolicmean Doppler gradient 9 mmHg. Aortic valve area by Doppler 2.63 cm2. Mildaortic valve regurgitation. Mildly thickened mitral valve. Mitral chordalsystolic anterior motion. Trivial mitral valve regurgitation. Normalpulmonary valve. Normal pulmonary valve systolic velocities. Trivialpulmonary valve regurgitation. Normal tricuspid valve. Trivial tricuspidvalve regurgitation. OTHER ECHO FINDINGS:Normal inferior vena cava size with normal inspiratorycollapse (>50%). Mildly enlarged sinus of Valsalva diameter of 42 mm.Upper limit of normal of the sinus of Valsalva for age, sex and BSA is 40mm. Enlarged proximal ascending aorta diameter of 47 mm. Moderatelyenlarged mid ascending aorta diameter of 47 mm. Upper limit of normal ofthe mid ascending aorta, for age, sex and BSA is 38 mm. Abdominal aortaincompletely visualized. Normal abdominal aorta Doppler flow pattern. Noatrial level shunt by color flow imaging. Patent foramen ovale noted onoutside echocardiogram 03/18/23 (on agitated saline contrast study). Nointracardiac mass or thrombus, but the left atrial appendage cannot bevisualized adequately with transthoracic echo to exclude thrombus in thislocation. No pericardial effusion. For the complete report, see the Order-Level Documents. us Nathan Allen M.D. CV ECHO PROCEDURES Final Resu lt * Comprehensive Metabolic Panel (11/06/2023 10:51 AM CDT) Potassium, P 4.0 3.6 - 5.2 mmol/L 11/06/2023 11:15 AM CDT NPRG Sodium, P 140 135 - 145 mmol/L 11/06/2023 11:15 AM CDT NPRG Chloride, P 103 98 - 107 mmol/L 11/06/2023 11:15 AM CDT NPRG Bicarbonate, P 25 22 - 29 mmol/L 11/06/2023 11:15 AM CDT NPRG Anion Gap, P 12 7 - 15 11/06/2023 11:15 AM CDT NPRG BUN (Blood Urea Nitrogen), P 12 8 - 24 mg/dL 11/06/2023 11:15 AM CDT NPRG Creatinine 0.87 0.74 - 1.35 mg/dL 11/06/2023 11:15 AM CDT NPRG Estimated GFR (eGFR) >90 >=60 mL/min/BS A 11/06/2023 11:15 AM CDT NPRG Comment: Estimated GFR calculated using the 2020 CKD_EPI creatinine equation. Calcium, Total, P 9.1 8.8 - 10.2 mg/dL 11/06/2023 11:15 AM CDT NPRG Glucose, P 130 70 - 140 mg/dL 11/06/2023 11:15 AM CDT NPRG Protein, Total, P 6.7 6.3 - 7.9 g/dL 11/06/2023 11:15 AM CDT NPRG Albumin, P 4.3 3.5 - 5.0 g/dL 11/06/2023 11:15 AM CDT NPRG Aspartate Aminotransferase (AST), P 22 8 - 48 U/L 11/06/2023 11:15 AM CDT NPRG Alkaline Phosphatase, P 63 40 - 129 U/L 11/06/2023 11:15 AM CDT NPRG Alanine Aminotransferase (ALT), P 25 7 - 55 U/L 11/06/2023 11:15 AM CDT NPRG Bilirubin, Total, P 0.4 0.0 - 1.2 mg/dL 11/06/2023 11:15 AM CDT NPRG Blood (Blood, Venous) 11/06/2023 10:51 AM CDT 11/06/2023 10:55 AM CDT Ronan Gallo M.D. LAB BLOOD ADD-ON Final Resul t [facility] [address] [place] [address], [facility] NPRG [facility] [address] [place] [address] from Last 3 Months or Most Recently Relevant to Health Maintenance Insurance [facility] Care Teams Bar Finish Operator Relationship Specialty Start Date End Date None Reported, Pcp PCP - General Family Medicine 11/06/23
--- OUTSIDE RECORDS SUMMARY | 2024-03-22 14:37 | XMS_ITS | Clinical Summary ---
Author Organization [facility] Address [address], [place] [address] Care Team Providers Care Physician Advisor Name Role Phone Thom Chew MD Primary Care Provider Source Comments You are receiving this document as you are listed as the primary care provider,follow-up provider, or the patient has been referred to you for consultation.This is in compliance with the Medicare and[facility] E[facility] Incentive Program,which states Providers who transition their patient to another setting of careor provider of care or refers their patient to another provider of care shouldprovide summary care record for each transition of care or referral. [facility] Allergies No known active allergies Medications Medication Sig Dispensed Refills Start Date End Date Status pyridoxine (B-6) 50 MG tablet Take 1 Tablet (50 mg) by mouth daily. 100 01/26/2006 Active Cyanocobalamin (B-12) 50 MCG TABS daily (every 24 hours). 01/26/2006 Active ascorbic acid (AKA VITAMIN C) 100 MG tablet Take 1 Tablet (100 mg) by mouth daily. 01/26/2006 Active Multiple Vitamins-Minerals (MULTIVITAMIN OR) Take 1 tablet by mouth daily (every 24 hours). 100 01/26/2006 Active VITAMIN E OR Take 1 capsule by mouth daily (every 24 hours). 100 3 08/02/2007 Active omega-3 fatty acids (FISH OIL) 1000 MG capsule Indications: PN: 11/04/2007 Active atorvastatin (LIPITOR) 20 MG tablet Take 1 Tablet (20 mg) by mouth daily at bedtime. 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 Overview (10/08/2016): Erectile Dysfunction Resolved Problems Problem Noted Date Diagnosed Date Resolved Date BPH (benign prostatic hyperplasia) 02/02/2018 02/04/2023 Intracranial injury 11/11/2007 02/05/20 23 Overview (10/08/2016): LW Modifier: in hospital 4 weeks at age 12 ; Head Injury Intracranial Closed Dizziness and giddiness 11/11/200701/17 Overview (10/08/2016): Dizziness Syncope and collapse 11/11/2007 023 Overview (10/08/2016): LW Modifier: during micturition ; Syncope Tobacco use disorder 01/26/2006 023 Overview (10/08/2016): Tobacco Abuse Ostium secundum type atrial septal defect 03/31/2023 Overview (03/31/2023): This problem was marked as resolved by a user in a SmartForm. Aortic aneurysm 03/31/2023 Overview (03/31/2023): This problem was marked as resolved by a user in a SmartForm. Immunizations Name Administration Dates Next Due Flu Vac (3+ yrs) 12/01/2016, 6,12/09/2013, 013,12/12/2011,12/04/2010 Fluzone Qiv Multidose Vial 0 .25 (6-35 Mos) 12/07/2018 Influenza (Flucelvax) 12/02/2017 Influenza IIV4 (Quadrivalent ) 0.5mL (94952) 01/03/2023,01/10/2022,01/11/2021, 019,12/01/2016,11/30/2014 PCV20 ([id number]) 02/04/2023 PPSV23 (Pneumovax) 01/29/2017 Td 01/26/2006 Td (7+ yrs) 01/26/2006 Tdap 02/02/2014 Social History Tobacco Use Types Packs/Day Years Used Date Smoking Tobacco: Every Day Cigarettes 0.2 41.1 Started: 02/16/1983 Smokeless Tobacco: Never Tobacco Cessation:Ready to Q uit: Not Asked; Counseling Given: Not Answered Alcohol Use Standard Drinks/Week Comments Yes 0 (1 standard drink = 0.6 oz pur e alcohol) occ PHQ-2 Answer Date Recorded PHQ-2 Score 0 02/04/2023 Financial Resource Strain Answer Date R ecorded Is it hard for you to pay fo r the very basics like food, housing, medical care or heating? No 02/04/2023 Food Insecurity Answer Date Recorded Does your food run out before you have the money to buy more? No 02/04/2023 Transportation Needs Answer Date Record ed Does a lack of transportatio n keep you from your medical appointments or from getting your medications? No 023 Sex and Gender Information Value Date Recorded Sex Assigned at Not on file Gender Identity Not on file Sexual Orientation Not on file Last Filed Vital Signs Vital Sign Reading Time Taken Comments Blood Pressure 121/68 11/12/2023 3:56 PM CDT Pulse 66 11/12/2023 3:56 PM CDT Temperature 36.8 C (98.2 F) 03/01/2021 3:20 PM DEICER REPAIRER Respiratory Rate 16 12/08/2009 4:48 PM CDT Oxygen Saturation 98% 03/01/2021 3:20 PM DEICER REPAIRER Inhaled Oxygen Concentration - - Weight 63.8 kg (140 lb 9.6 oz) 11/12/2023 3:56 P M CDT Height 171.5 cm (5' 7.5) 03/30/2023 11:08 AM CS T Body Mass Index 21.7 03/30/2023 11:08 AM DEICER REPAIRER Plan of Treatment Health Maintenance Due Date Last Done Comments HepA (1 of 2 - Risk 2-dose series) 10/01/1982 Zoster/Shingles (1 of 2) 10/01/2013 COVID-19 Vaccine ( season) 2023 Influenza (#1) 2023 01/03/2023, 12/18, 01/11/2021, Additional history exists DTaP/Tdap/Td (2 - Tdap) 02/03/2024 02/03/20 14, 01/26/2006, 01/26/2006 Adult Preventive Visit 02/05/2024 02/04/2023 PSA Screening Discussion 02/05/2024 02/04/2023 Lung Cancer Screening 02/15/2024 02/14/2023 Colonoscopy 06/13/2026 06/13/2016 (Completed) Cholesterol 05/29/2028 05/30/2023, 01/17, 01/28/2006, Additional history exists RSV (1 - 1-dose 75+ series) 10/01/2038 HIV Screening (Preventive Services) Completed 02/04/2023 Hep C Screening (Preventive Services) Completed 02/04/2023 Pneumococcal Completed 02/04/2023, 01/29/2017 HepB Aged Out No longer eligi ble based on patient's age to complete this topic Hib Aged Out No longer eligi ble based on patient's age to complete this topic IPV (Polio) Aged Out No longer eligi ble based on patient's age to complete this topic MCV4 Aged Out No longer eligi ble based on patient's age to complete this topic Procedures Procedure Name Priority Date/Time Associated Diagnosis Comments LIPID PANEL & DIRECT LDL (IF NEEDED) Routine 05/30/2023 11:33 AM CDT Dyslipidemia ([facility]) CT CHEST WO IV CONT LUNG SCREENING Routine 02/14/2023 1:35 PM DEICER REPAIRER Smoking greater than 20 pack years ([facility]) PROSTATIC SPECIFIC ANTIGEN(SCREEN) Routine 02/04/2023 9:35 AM DEICER REPAIRER Encounter for prostate cancer screening HIV 1/2 AG/AB 4TH GEN Routine 02/04/2023 9:35 AM DEICER REPAIRER Screening for HIV (human immunodeficiency virus) HEPATITIS C ANTIBODY, WITH REFLEX Routine 02/04/2023 9:35 AM DEICER REPAIRER Need for hepatitis C screening test from Last 3 Months or Most Recently Relevant to Health Maintenance Results * Lipid Panel and Direct LDL (If Needed) (05/30/2023 11:33 AM CDT) Cholesterol 124 0 - 199 mg/dL 05/30/2023 3:46 PM CDT [facility] Triglyceride 60 <=149 mg/dL 05/30/2023 3:46 PM T [facility] HDL Cholesterol 55 >=40 mg/dL 3:46 PM T [facility] LDL, Calculated 57 <130 mg/dL 3:46 PM CDT [facility] Non HDL Chol, Calculated 69 <=159 mg/dL 05/30/2023 3:46 PM T [facility] Cholesterol/HDL Ratio 2.3 <=5.0 05/30/2023 3:46 PM T [facility] Hours Fasting 12.0 8 - 12 Hours 05/30/2023 3:46 PM CDT [facility] Blood Venipuncture / Unknown 05/30/2023 11:33 AM CDT 05/30/2023 11:33 AM CDT Ryder Marinelli DO LAB_1 [facility] [address] [place] [address] [address] [place] [address], [facility] * CT Chest WO IV Cont Lung Screening (02/14/2023 1:35 PM DEICER REPAIRER) Anatomical Region Laterality Modality Chest, Lung Computed Tomogra phy 02/14/2023 1:32 PM DEICER REPAIRER Impressions 02/14/2023 2:24 PM DEICER REPAIRER COMPARISON: None. TECHNIQUE: Images through the chest were obtained without contrast using a low dose lung screening technique. FINDINGS: CHEST WALL AND LOWER NECK: Unremarkable. HEART AND VASCULATURE: Normal heart size. No pericardial effusion. Ascending thoracic aortic aneurysmal dilatation measuring 4.5 cm. No significant coronary artery calcifications. MEDIASTINUM: Unremarkable esophagus. No adenopathy. LUNGS AND PLEURAL SPACE: Patent central airways. Mild emphysematous changes. No acute airspace consolidation. No pneumothorax or pleural effusion. A pleural-based nodule along the left major fissure measures 3 x 5 mm on axial image 69, possibly an intrapulmonary lymph node. UPPER ABDOMEN: Unremarkable. BONES: Unremarkable for age. IMPRESSION: 1. Aneurysmal dilatation of the ascending aorta at 4.5 cm. 2. No acute intrathoracic findings. ACR Lung-RADS Category ACR Lung-RADS Category 2: Benign. Continue annual screening with low-dose chest CT in 12 months (CT Chest WO IV Cont Lung Screening). Thom Chew MD RAD CT * HIV 1/2 Ag/Ab 4th Generation (02/04/2023 9:35 AM DEICER REPAIRER) HIV 1/2 Antigen/Antib [place] (4th generation) Negative (Non Reactive) Negative (Non Reactive) 02/04/2023 5:41 PM DEICER REPAIRER [facility] Comment:HIV-1 p24 Antigen an d HIV-1/HIV-2 Antibody not detected Blood Venipuncture / Unknown 02/04/2023 9:35 AM DEICER REPAIRER 02/04/2023 9:35 AM DEICER REPAIRER Thom Chew MD LAB_1 [facility] [address] [place], [place] [address] * Prostatic Specific Antigen (Screen) (02/04/2023 9:35 AM DEICER REPAIRER) Prostatic Specific Antigen 0.5 0.0 - 4.0 ng/mL 02/04/2023 5:06 PM DEICER REPAIRER [facility] Blood Venipuncture / Unknown 02/04/2023 9:35 AM DEICER REPAIRER 02/04/2023 9:35 AM DEICER REPAIRER Narrative [facility] - 02/04/2023 5:06 PM DEICER REPAIRER [employer] PSA Chemiluminescent immunoassay is used. Results obtained with different test methods or kits cannot be used interchangeably. Thom Chew MD LAB_1 Performing Organization Address [facility] de Phone Number [facility] [address] [place] [address] * Hepatitis C Antibody, with Reflex (02/04/2023 9:35 AM DEICER REPAIRER) Pathologist [facility] Hepatitis C Antibody Negative (Non Reactive) Negative (Non Reactive) 02/04/2023 5:41 PM DEICER REPAIRER [facility] Comment:Antibodies to HCV no t detected. Does not exclude the possiblity of exposure to HCV. Blood Venipuncture / Unknown 02/04/2023 9:35 AM DEICER REPAIRER 02/04/2023 9:35 AM DEICER REPAIRER Thom Chew MD LAB_1 Performing Organization Address [facility] Co de Phone Number [facility] [address] [place] [address] from Last 3 Months or Most Recently Relevant to Health Maintenance Care Teams Physician Advisor Relationship Specialty Start Date End Date Thom Chew MD [address] [place] [phone] PCP - General Family Practice 12/30/23
--- OUTSIDE RECORDS SUMMARY | 2024-03-22 14:37 | XMS_ITS | Clinical Summary ---
Author Organization [facility] Address [place], [place] [address] Care Team Providers Care Child Welfare Director Name Role Phone Nathan Allen MD Primary Care Provider [phone] Allergies No known active allergies Medications Multivitamins with Minerals capsule Take by mouth. 02/03/2013 Active vitamin B comp and vit C no.6 (VITAMIN B COMP WITH VIT C NO.6 ORAL) Take by mouth. Active Arginine HCl, L-Arg HCl,,Bulk, 100 % powd Take by mouth. Active calcium carbonate ([id number]) 500 mg calcium (1,250 mg) tablet Take 1 tablet by mouth. Active Cyanocobalamin powd Take by mouth. Active Vitamin E 100 unit/0.25 mL drop Take by mouth. Active ascorbic acid,sod-zinc ox,gluc (ZINC AND C) 120-20 mg lozg Active atorvastatin (LIPITOR) 20 mg tablet Take 20 mg by mouth. 03/30/2023 Active Active Problems Problem Noted Date Diagnosed Date Tobacco dependence 02/02/2018 Ascending aorta dilatation 02/02/2018 Overview (02/02/2018): Overview: Dr De Leon - mild BPH (benign prostatic hyperplasia) 02/02/2018 Encounters Date Type Department Care Team Description 03/02/2024 Telephone [facility] [address] [facility] [address] [place] [address] Jaya Little MD Results 02/22/2024 Telephone [facility] [address] [facility] [address] [place] [address] Jaya Little MD Results 02/11/2024 10:30 AM MARITIME PILOT Ancillary Procedure [facility] [address] [place] [address] 02/11/2024 Travel 02/02/2024 Orders Only [facility] [address] [place] [address] Jaya Little MD <No scans attached> 02/02/[address] [facility] [address] [place] [address] Jaya Little MD Cardiology Appointment 01/21/2024 1:30 PM MARITIME PILOT Office Visit [facility] [address] [place] [address] Jaya Little MD Consult from Last 3 Months Family History Medical History Relation Name Comments Lung disease Father Cancer Mother Relation Name Status Comments Brother Father Mother Sister 6 Alive Social History Tobacco Use Types Packs/Day Years Used Date Smoking Tobacco: Every Day Cigarettes Started: 1977 Smokeless Tobacco: Never Tobacco Cessation:Ready to Q uit: No; Counseling Given: Yes Comments:less than a half pack a day Alcohol Use Standard Drinks/Week Comments Yes 0 (1 standard drink = 0.6 oz pur e alcohol) weekends a little. PHQ-2 Answer Date Recorded PHQ-2 Score 0 04/19/2018 Sex and Gender Information Value Date Recorded Sex Assigned at Not on file Legal Sex Male 7:07 AM MARITIME PILOT Gender Identity Not on file Sexual Orientation Not on file Obstetrics History Last Filed Vital Signs Vital Sign Reading Time Taken Comments Blood Pressure 121/83 01/21/2024 1:28 PM MARITIME PILOT Pulse 56 02/02/2018 9:22 AM MARITIME PILOT Temperature - - Respiratory Rate - - Oxygen Saturation 97% 01/21/2024 1:28 PM MARITIME PILOT Inhaled Oxygen Concentration - - Weight 63.5 kg (140 lb) 01/21/2024 1:28 PM MARITIME PILOT Height 170.2 cm (5' 7) 01/21/2024 1:28 PM MARITIME PILOT Body Mass Index 21.93 01/21/2024 1:28 PM MARITIME PILOT Plan of Treatment Health Maintenance Due Date Last Done Comments Tdap 10/01/1974 HIV for age 15-65 10/01/1978 Hepatitis C screening for age 18-79 10/01/1981 Pneumococcal series for age 50+ (1 of 2 - PCV) 10/01/1982 Tetanus booster 1983 Colonoscopy through age 75 10/01/2008 Zoster (shingles) series for age 50+ (1 of 2) 10/01/2013 Depression screening for age 12+ 02/02/2019 02/03/20 18 Lipids for age 45-75 02/02/2023 02/02/2018 RSV vaccine for adults or pr egnancy (1 - Risk 60-74 years 1-dose series) 2023 COVID-19 vaccine series ( season) 2023 Influenza for age 50-64 10/18/2023 BMI (ht and wt on same day) for age 18+ 01/20/2025 1 03/23/2023, 02/02/2018 Procedures Procedure Name Priority Date/Time Associated Diagnosis Comments CTA CHEST - RAD DUAL READ Routine 02/11/2024 10:43 AM MARITIME PILOT Ascending aorta dilatation (HC) Chest pain, unspecified type Bicuspid aortic valve CT CARDIAC CORONARY ARTERIES RAD DUAL READ Routine 02/11/2024 10:43 AM MARITIME PILOT Ascending aorta dilatation (HC) Chest pain, unspecified type Bicuspid aortic valve LIPID PANEL W REFLEX MEASURED LDL Routine 02/02/2018 10:06 AM MARITIME PILOT Lipid screening from Last 3 Months or Most Recently Relevant to Health Maintenance Results * CT CARDIAC CORONARY ARTERIES DUAL READ (02/11/2024 10:43 AM MARITIME PILOT) Anatomical Region Laterality Modality HEART Computed Tomogra phy 02/11/2024 10:3 5 AM MARITIME PILOT Impressions 02/11/2024 4:11 PM MARITIME PILOT 1. Please see dedicated cardiac imaging report. The aorta is also reported by cardiology. 2. No acute or suspicious extracardiac imaging abnormality. Please note that all CT scans at this facility use dose modulation, iterative reconstruction, and/or weight-based dosing when appropriate to reduce radiation dose to as low as reasonably achievable. Dictated by: Herrera Mcfarlane MD @ 02/11/2024 12:27:56 Narrative 02/11/2024 4:[address] [facility] Cardiac CT Report Name: HERRERA ESTRADA : Scan Date: Accession Number: [id number] Status: Final Electronically signed by Gurinder Ledbetter 11:24:09 VITALS HEIGHT: 67 in (170 cm) WEIGHT: 140 lbs (64 kgs) BSA: 1.74 m^2 BMI: 22 kg/m^2 BP: 116 / 73 mmHg HEART RHYTHM: Normal Sinus Rhythm FINAL IMPRESSION 1. Normal coronary arteries without plaque. 2. Probable type 1 bicuspid aortic valve (seen in diastole only) with fusion of the R and L coronary cusps and mild central coaptation gap. A. Aortic sinuses: 4.1 x 4.0 x 4.0 cm or 6.9 cm2/m. 3. Dilated ascending aorta: 4.5 x 4.3 cm or 8.7 cm2/m. STUDY QUALITY: Study quality is excellent. CAD-RADS: CAD-RADS Classification 0 (0% stenosis). CALCIUM SCORING: Total coronary artery calcium score 0. DOMINANCE: Right dominant coronary artery system. LM: The LM is normal. LAD: The LAD is normal. D1: The first diagonal is normal. D2: The second diagonal is normal. LCX: The LCx is normal. OM1: The first obtuse marginal is normal. OM2: The second obtuse marginal is normal. LEFT PLB: The left posterolateral branch is normal. RCA: The RCA is normal. RIGHT PDA: The right PDA is normal. OTHER FINDINGS: Aortic sinuses: probable type 1 bicuspid aortic valve (seen in diastole only) with fusion of the R and L coronary cusps and mild central coaptation gap. 4.1 x 4.0 x 4.0 cm or 6.9 cm2/m. Ascending aorta: 4.5 x 4.3 cm or 8.7 cm2/m. Normal pericardium. No left atrial appendage thrombus. CALCIUM SCORING TABLE . . Number of Lesions Pattern of Calcium Volume Total Score +-------+ + +--------+ + LM 0 0 LAD 0 0 LCx 0 0 RCA 0 0 Ramus 0 0 '-------+ + +--------+ ' SCAN INFO TEST TYPE: Calcium score, Coronary CT Angiography SCANNER MANAGER LEADERSHIP DEVELOPMENT: [employer] SCANNER MODEL: PWRF DOSE REDUCTION ALGORITHM: Helical with dose modulation PHASE UNITS: % START PHASE: 65 % END PHASE: 75 % EKG GATED: Yes PRE-CONTRAST: Yes POST-CONTRAST: Yes 3D RECONSTRUCTION: Yes GENERAL CONTRAST AGENT CONTRAST AGENT USED?: Yes TYPE: Omnipaque 350 DOSE: 100 ml RATE: 6 ml/s ROUTE: IV ARM: Right BOLUS TECHNIQUE: Biphasic SERUM CREATININE: 0.88 mg/dL GFR: 93.89 ml/min/1.73m^2 CREATININE DATE: CT CONTRAST REACTION: None MEDICATION ADMINISTERED DURING SCAN TYPE: Nitroglycerin, sublingual NITROGLYCERIN, TOTAL DOSE: 0.8 mg RADIATION DOSE DLP: 280.6 KV: 90 SETUP PATIENT TYPE: Outpatient REASON(S) FOR SCAN: Chest pain, Other... OTHER, SPECIFY:: ao dilation REFERRING PHYSICIAN: ERIC BISHOP TECHNOLOGIST: Marj Murillo BILLING Patient Account [id number] ICD10 Codes I77.810, R07.9, Q23.81 Report generated by [employer], a product of [employer] For Patients: As a result of the 21st Century Cures Act, medical imaging exams and procedure reports are released immediately into your electronic medical record. You may view this report before your referring provider. If you have questions, please contact your health care provider. OVER-READ OVER-READ OVER-READ OVER-READ: DETAILED RADIOLOGY EXTRACARDIAC OVER-READ OF CARDIAC CT 11/23/2023 TECHNIQUE: Please see cardiology report for technical information. 100 cc Omnipaque 350. INDICATION: Cardiac over-read. This exam is being performed in conjunction with the services provided by the [facility] [place] ([facility]). FINDINGS Mediastinal structures: Unremarkable with no suspicious adenopathy. Pulmonary arteries: Bolus timing limits evaluation, no definite filling defects. Lungs and pleura: No suspicious nodules, acute consolidation or pleural fluid. Small perifissural nodule/intrapulmonary lymph node left major fissure. Optional follow-up CT scan in the presence of any significant risk factor (i.e. history of smoking or previous neoplasm). Jaya Little MD CT Final Result * CTA CHEST - DUAL READ (02/11/2024 10:43 AM MARITIME PILOT) Anatomical Region Laterality Modality CHEST Computed Tomogra phy 02/11/2024 10:3 5 AM MARITIME PILOT Narrative 02/11/2024 1:[address] [facility] Cardiac CT Report Name: HERRERA ESTRADA : Scan Date: Accession Number: [id number] Status: Final Electronically signed by Gurinder Ledbetter 11:24:09 VITALS HEIGHT: 67 in (170 cm) WEIGHT: 140 lbs (64 kgs) BSA: 1.74 m^2 BMI: 22 kg/m^2 BP: 116 / 73 mmHg HEART RHYTHM: Normal Sinus Rhythm FINAL IMPRESSION 1. Normal coronary arteries without plaque. 2. Probable type 1 bicuspid aortic valve (seen in diastole only) with fusion of the R and L coronary cusps and mild central coaptation gap. A. Aortic sinuses: 4.1 x 4.0 x 4.0 cm or 6.9 cm2/m. 3. Dilated ascending aorta: 4.5 x 4.3 cm or 8.7 cm2/m. STUDY QUALITY: Study quality is excellent. CAD-RADS: CAD-RADS Classification 0 (0% stenosis). CALCIUM SCORING: Total coronary artery calcium score 0. DOMINANCE: Right dominant coronary artery system. LM: The LM is normal. LAD: The LAD is normal. D1: The first diagonal is normal. D2: The second diagonal is normal. LCX: The LCx is normal. OM1: The first obtuse marginal is normal. OM2: The second obtuse marginal is normal. LEFT PLB: The left posterolateral branch is normal. RCA: The RCA is normal. RIGHT PDA: The right PDA is normal. OTHER FINDINGS: Aortic sinuses: probable type 1 bicuspid aortic valve (seen in diastole only) with fusion of the R and L coronary cusps and mild central coaptation gap. 4.1 x 4.0 x 4.0 cm or 6.9 cm2/m. Ascending aorta: 4.5 x 4.3 cm or 8.7 cm2/m. Normal pericardium. No left atrial appendage thrombus. CALCIUM SCORING TABLE . . Number of Lesions Pattern of Calcium Volume Total Score +-------+ + +--------+ + LM 0 0 LAD 0 0 LCx 0 0 RCA 0 0 Ramus 0 0 '-------+ + +--------+ ' SCAN INFO TEST TYPE: Calcium score, Coronary CT Angiography SCANNER MANAGER LEADERSHIP DEVELOPMENT: [place] SCANNER MODEL: PWRF DOSE REDUCTION ALGORITHM: Helical with dose modulation PHASE UNITS: % START PHASE: 65 % END PHASE: 75 % EKG GATED: Yes PRE-CONTRAST: Yes POST-CONTRAST: Yes 3D RECONSTRUCTION: Yes GENERAL CONTRAST AGENT CONTRAST AGENT USED?: Yes TYPE: Omnipaque 350 DOSE: 100 ml RATE: 6 ml/s ROUTE: IV ARM: Right BOLUS TECHNIQUE: Biphasic SERUM CREATININE: 0.88 mg/dL GFR: 93.89 ml/min/1.73m^2 CREATININE DATE: CT CONTRAST REACTION: None MEDICATION ADMINISTERED DURING SCAN TYPE: Nitroglycerin, sublingual NITROGLYCERIN, TOTAL DOSE: 0.8 mg RADIATION DOSE DLP: 280.6 KV: 90 SETUP PATIENT TYPE: Outpatient REASON(S) FOR SCAN: Chest pain, Other... OTHER, SPECIFY:: ao dilation REFERRING PHYSICIAN: ERIC BISHOP TECHNOLOGIST: Marj Murillo BILLING Patient Account [id number] ICD10 Codes I77.810, R07.9, Q23.81 Report generated by [employer], a product of [employer] Over read: Findings: No pulmonary emboli. No mediastinal or hilar adenopathy. The lungs show mild bibasilar atelectasis. No focal pulmonary opacities. No pneumothorax. No other bony or soft tissue abnormalities identified. Impression: No acute abnormalities of the extracardiac/extravascular structures identified. Jaya Little MD CT Final Result * LIPID PANEL W REFLEX MEASURED LDL (02/02/2018 10:06 AM MARITIME PILOT) [facility] CHOLESTEROL,TOTAL 186 100 - 199 mg/dL 02/03/2018 12:39 AM MARITIME PILOT [facility] TRIGLYCERIDES 106 <150 mg/dL 02/03/2018 12:39 AM [facility] HDL CHOLESTEROL 51 >40 mg/dL 8 12:39 AM MARITIME PILOT [facility] NON-HDL CHOLESTEROL 135 <145 mg/dl 02/03/2018 12:39 AM MARITIME PILOT [facility] CHOL/HDL RATIO 3.65 <4.50 02/03/2018 12:39 AM MARITIME PILOT [facility] LDL CHOLESTEROL 114 <=130 mg/dL 02/03/2018 12:39 AM MARITIME PILOT [facility] PROVIDER ORDERED STATUS RANDOM 02/03/2018 12:39 AM MARITIME PILOT [facility] Blood BLOOD SPECIMEN / Unknown Venipuncture / Unknown 02/02/2018 10:06 AM MARITIME PILOT 02/02/2018 10:07 AM MARITIME PILOT Florentin De León MD CHEMISTRY Final R esult [facility] [address] [place] [address], from Last 3 Months or Most Recently Relevant to Health Maintenance Insurance [facility] [employer] Care Teams Child Welfare Director Relationship Specialty Start Date End Date Nathan Allen MD [address] [place] [id number] PCP - General Family Practice 01/21/24
[2024-03-22 14:53] VITALS: BP 110/71; PULSE 57; RESP 16; TEMP 36.7; O2SAT 95; BMI 21.9
--- NOTE | 2024-03-22 15:41 | ED_ITS ---
HPI - General Adult General Date Seen: 03/22/24 Chief complaint: Head Injury/Pain Stated complaint: hit head, lac, no LOC Time Seen by Provider: 03/22/24 15:29 History of Present Illness HPI narrative: 58-year-old male presenting to the ER today with a head injury. He was driving a ?Tugger at work and when he hit his head against a steel rack. He suffered a laceration to the left upper parietal portion of his scalp. He denies and any loss of consciousness. He was feeling a bit dizzy prior to the injury. He has been experiencing dizziness for the past 4 months and has not received a formal diagnosis. He says he has been working with his regular doctors which are through the [facility] in [place] 4 episodes where he sometimes gets a little dizzy, occasional chest pain and sometimes numbness affecting both of his hands and sometimes both of his feet. He has had workups including heart tests, lung scan, brain MRI which were all normal. His doctors are recommending that he see a neurologist. He called the Neurology clinics but can not get an appointment for 6 months. He says he had been doing better but then he started having some more symptoms a couple of weeks ago. He is not really here in the ER today because of those dizzy spells. Past medical history per his chart from [facility] includes bicuspid aortic valve, dilation of his ascending a thoracic aorta, BPH, tobacco use, hyperlipidemia. Per cardiology notes from 2023... 57-year-old male, who has been followed in Cardiology Clinic in the [facility] and was last assessed by Dr. De Leon in 2017. The patient was noted to have an aorta that measured between 4.1 and 4.2 cm, which has been stable since 2010. He has a bicuspid aortic valve and has been noted to have 1 to 2+ aortic regurgitation. Additional comorbidities include tobacco use and hyperlipidemia.? On 12/14/2023, he underwent a chest CTA which demonstrated a dilated ascending aorta measuring 4.7 x 4.7 cm in maximal orthogonal dimensions. Moreover, on 12/28/2023, he underwent a transthoracic echocardiogram which demonstrated a bicuspid aortic valve with fusion of the left and right coronary cusps, without significant stenosis and only mild aortic regurgitation. There is normal biventricular size and function. The ascending aorta was dilated at 4.7 cm What brought him to the ER today is that he was at his job today. 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 He was driving his vehicle which is called [employer], which poles carts and baskets around the warehouse. He was driving the Juan and bending off the side of it apple picker a Tote of material from underneath a shelf. He stood up too quickly while driving the Juan and hit the top of his head against the underside of the shelf. He suffered a laceration to the top of his scalp that was bleeding fairly briskly but now is under control. He has a mild headache. No new dizziness. No vomiting. Vision is normal. He is not on any blood thinners or anticoagulants. Because of the head injury, he came here to the ER. Related Data Home Medications ?Medication ?Instructions ?Recorded ?Confirmed atorvastatin 20 mg tablet mg DAILY 03/22/24 Allergies Allergy/AdvReac Type Severity Reaction Status Date / Time No Known Drug Allergies Allergy Verified 03/22/24 14:57 [facility] Social History Smoking Status: Current every day smoker How often do you have a drink containing alcohol: 2-3 times a week AUDIT-C Alcohol total score: 3 Non-prescribed substance use: denies use Exam Narrative: Exam Narrative: Primary Survey: A- patent. Speaking clearly. Phonation normal. No stridor. B- breathing easily. Lung sounds clear and equal. Oxygen saturation normal on room air C- no active bleeding. Blood pressure stable. Symmetric pulses and cap refill in 4 extremities. D- alert and oriented x3. GCS 15. No focal deficits. Constitutional: Appears well-developed and well-nourished. Alert. Conversant. Non toxic. HENT: Head: There is a 1 cm laceration on the vertex of the scalp just left of midline on the left parietal scalp. No active bleeding. No underlying scalp hematoma. No palpable skull fracture. No depressed skull fracture, Raccoon Eyes, Santoyo's sign, or hemotympanum. Face normal. TMs normal. Nose: Nose normal. Mouth/Throat: Oral mucosa is clear and moist. no trismus. Pharynx normal. Tonsils symmetric. No tonsillar enlargement, erythema, or exudate. Eyes: Conjunctivae normal. EOM normal. Pupils equal, round, and reactive to light. No scleral icterus. Neck: Normal range of motion. Neck supple. No tracheal deviation present. Cardiovascular: Normal rate, regular rhythm. No gallop. No friction rub. No murmur heard. Symmetric radial artery pulses Pulmonary/Chest: Effort normal. No stridor. No respiratory distress. No wheezes. No rales. No rhonchi . No tenderness. Musculoskeletal: RUE: Normal range of motion. No tenderness. No deformity LUE: Normal range of motion. No tenderness. No deformity RLE: Normal range of motion. No edema. No tenderness. No deformity LLE: Normal range of motion. No edema. No tenderness. No deformity Neurological: Mental status normal. Attention normal. Alert and oriented x3. GCS 15. Memory normal. Speech fluent. Cognition normal. Cranial Nerves intact II-XII except I did not formally test gag or visual acuity. EOMI. Palate elevates symmetrically and tongue protrudes in the midline. Strength: 5/5 trapezius on the right and left 5/5 deltoid on the right and left 5/5 biceps on the right and left 5/5 triceps on the right and left 5/5 project specialist on the right and left 5/5 thumb opposition on the right and le ft 5/5 finger abduction on the right and le ft 5/5 hip flexors (L3) on the right and le ft 5/5 quadriceps (L4) on the right and lef t 5/5 tibialis anterior on the right and l eft 5/5 EHL (L5) on the right and left 5/5 gastrocnemius (S1) on the right and left 5/5 hamstring on the right and left Sensation intact to light touch in both upper extremities (C4-T1) Sensation intact to light touch in Both lower extremities (L4-S1). Finger to nose and coordination normal. Gait normal. Skin: Skin is warm and dry. No rash noted. No pallor. Normal capillary refill. Psychiatric: Normal mood. Somewhat flat affect. Const: Vital Signs, click to edit/add: Vital Signs - 24 hr 03/22/24 14:53 Temperature 98.1 F Pulse Rate [Left P ulse Oximeter] 57 L Respiratory Rate 16 Blood Pressure [Ri ght Upper Arm] 110/71 Pulse Oximetry 95 Oxygen Delivery Me thod Room Air Course Vital Signs Vital signs: Initial Vital Signs Temperature 98.1 F 03/22/24 14:53 Temperature Source Temporal Artery Scan 03/22/24 14:53 Pulse Rate 57 L 03/22/24 14:53 Respiratory Rate 16 03/22/24 14:53 Blood Pressure 110/71 03/22/24 14:53 Blood Pressure Mean 84 03/22/24 14:53 Blood Pressure Position Sitting 03/22/24 14:53 Pulse Oximetry 95 03/22/24 14:53 Oxygen Delivery Method Room Air 03/22/24 14:53 Vital Signs Temperature 98.1 F 03/22/24 14:53 Pulse Rate 57 L 03/22/24 14:53 Respiratory Rate 16 03/22/24 14:53 Blood Pressure 110/71 03/22/24 14:53 Pulse Oximetry 95 03/22/24 14:53 Oxygen Delivery Method Room Air 03/22/24 14:53 Temperature 98.1 F 03/22/24 14:53 Pulse Rate 57 L 03/22/24 14:53 Respiratory Rate 16 03/22/24 14:53 Blood Pressure 110/71 03/22/24 14:53 Pulse Oximetry 95 03/22/24 14:53 Oxygen Delivery Method Room Air 03/22/24 14:53 Medical Decision Making MDM Narrative Medical decision making narrative: This patient presents with blunt head trauma after he struck the top of his head against the underside of a shelf while he was at work. He does have a small superficial scalp laceration. He he does feel a bit dizzy and off.. Differential includes intracranial injuries (e.g. skull fracture, epidural hematoma, subdural hematoma, intracerebral hemorrhage, and traumatic subarachnoid hemorrhage), verses concussion or other traumatic brain injury. CT imaging was obtained and fortunately was normal. At this time it appears that the patient's symptoms are due to a concussion. The patient/family understand that they must return if any red flags appear/develop in the coming hours/days, as this may represent an indication to perform a repeat CT scan or further evaluation. I have noted that red flags include: headaches that get worse, increased drowsiness, strange behavior, repetitive speech, seizures, repeated vomiting, growing confusion, increased irritability, slurred speech, weakness or numbness, and loss of responsiveness. This information will also be provided in writing at discharge. I have discussed the second impact syndrome, and the importance of not sustaining repeated concussion in the next 1-2 weeks. Post concussive syndrome is also discussed. The patient's questions have been answered. They have a responsible adult to accompany them home. It turns out, actually he has been having symptoms of feeling dizzy and off for about 4 months and is apparently had a fairly extensive workup through his PCP, through the [facility] in [place]. At this point would hold off on further workup for that here in the ER. He is waiting on a neurology consultation. Unfortunately I do not have any way to expedite a neurology consultation for him here in the ER this afternoon. Advised close outpatient follow-up with his PCP for recheck within the next couple of days. Imaging Data Chest x-ray: Attestation: I have reviewed the pertinent imaging results. Radiologist's impression: IMPRESSION: 1. No acute intracranial abnormality. 2. Mild chronic left maxillary sinusitis may be related to underlying dental disease. Discharge Plan Discharge Clinical Impression: Head injury, Laceration of scalp Patient Disposition: Home, Self-Care Condition: Stable Instructions: Head Injury (ED), Skin Adhesive Care (ED) Additional Instructions: As we discussed, please follow-up with her doctors from [facility] within the next 1-2 days to recheck. For your head injury, it is okay to get rest and normal sleep. Avoid activities that are dangers that might put you at risk for hitting her head. Avoid strenuous physical activity such as heavy lifting, running, for the next 7 days. If she develops new symptoms such as worsening headache, vomiting, confusion, please come back to the emergency room right away to recheck. Prescriptions: No Action atorvastatin 20 mg tablet DAILY Follow Up/Referrals: Provider,Not a Local [Primary Care Provider] - Stand Alone Forms: [employer] Info Instructions
--- NOTE | 2024-03-22 16:04 | CRLHL7_ITS ---
For Patients: As a result of the Cures Act, medical imaging exams and procedure reports are released immediately into your electronic medical record. You may view this report before your referring provider. If you have questions, please contact your health care provider. INDICATION: Blunt trauma. Small scalp laceration. TECHNIQUE: CT head without contrast. COMPARISON: None. FINDINGS: There is no mass effect or midline shift. No hydrocephalus. No CT evidence of acute hemorrhage or infarction. No abnormal extra-axial fluid collection. Bone windows show no acute calvarial fracture. Mild chronic left maxillary sinusitis. Suspected left maxillary molar dental disease is incompletely visualized. Paranasal sinuses and orbits as imaged are otherwise unremarkable. IMPRESSION: 1. No acute intracranial abnormality. 2. Mild chronic left maxillary sinusitis may be related to underlying dental disease. Dictated by Ronan Farias MD @ 03/22/2024 4:29:24 PM Please note that all CT scans at this facility use dose modulation, iterative reconstruction, and/or weight-based dosing when appropriate to reduce radiation dose to as low as reasonably achievable. Dictated by: Ronan Farias MD @ 03/22/2024 16:29:34 (Electronically Signed)
--- OUTSIDE RECORDS SUMMARY | 2024-03-22 16:41 | XMS_ITS | Encounter Summary ---
Author Organization [facility] Address [address] [place] [address] Care Team Providers Care Quality Control Coordinator Name Role Phone Fuad Reed MD Primary Care Provider [phone] Fuad Reed MD Unavailable Reason for Visit * Reason Onset Date Comments Call To Schedule Appointment 10/17/2019 Lef t message to schedule DEXA Encounter Details Date Type Department Care Team (Late st Contact Info) Description 10/17/[address] [address] [place] [address] [place] [address] Call To Schedule Appointment (Left message [...] on file Legal Sex Male 3:37 AM HEDIS NURSE Gender Identity Not on file Sexual Orientation Not on file 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
--- OUTSIDE RECORDS SUMMARY | 2024-03-22 16:41 | XMS_ITS | Encounter Summary ---
Author Organization [facility] Address [address] [place] [address] Care Team Providers Care Hardboard Coating Machine Operator Name Role Phone Doctor, None Primary Care Provider Unavailabl e Fuad Reed MD Primary Care Provider [phone] Fuad Reed MD Unavailable Fuad Reed MD Unavailable Velia Casanova PA-C Unavailable Fuad Reed MD Unavailable Encounter Details Date Type Department Care Team (Late st Contact Info) Description 01/29/2012 [facility] [address] [address] [facility] Social History Tobacco Use Types Packs/Day Years Used Date Smoking Tobacco: Every Day Cigarettes Smokeless Tobacco: Never Alcohol Use Standard Drinks/Week Comments Yes 0 (1 standard drink = 0.6 oz pur e alcohol) occ Sex and Gender Information Value Date Recorded Sex Assigned at Not on file Legal Sex 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 Gender Identity Not on file Sexual Orientation Not on file documented as of this encounter Plan of Treatment Not on file documented as of this encounter Visit Diagnoses Not on filedocumented in this encounter Additional Health Concerns Infection Onset Date Last Indicated Resolved Time Rule Out COVID-19 02/22/2021 02/22/2021 02/22/2021 11:46 PM MINING TEACHER COVID-19 02/22/2021 02/22/2021 03/15/2021 11:3 9 PM MINING TEACHER documented as of this encounter Care Teams Hardboard Coating Machine Operator Relationship Specialty Start Date End Date Josh Montanez MD PCP - General 04/02/01 02/02/13 Fuad Reed MD [address] [place] [address] PCP - General Family Practice 02/03/13 Fuad Reed MD [address] [place] [address] PCP - Assigned PCP 05/04/16 04/20/18 Fuad Reed MD [address] [place] [address] Assigned PCP 05/04/16 08/28/18 Velia Casanova PA-C [address] [place] [address] Assigned PCP 08/29/18 08/20/19 Fuad Reed MD [address] [place] [address] Assigned PCP 08/21/19 documented as of this encounter
--- OUTSIDE RECORDS SUMMARY | 2024-03-22 16:41 | XMS_ITS | Encounter Summary ---
Author Organization [facility] Address [address] [place] [address] Care Team Providers Care Building Performance Consultant Name Role Phone None Reported, Pcp Primary Care Provider Unavail able Encounter Details Date Type Department Care Team (Latest Contact Info) Description 02/05/2024 10:48 AM ACCOUNT ASSISTANT - 02/05/2024 11:59 PM ACCOUNT ASSISTANT Hospital Encounter Department of Laboratory Medicine in [place], [place] [address] [place] [address] Jaya Little M.D., Ph.D. [address] [phone] Other Chest Pain Discharge Disposition: Home or [...] on file Legal Sex Male 4:52 PM ACCOUNT ASSISTANT Gender Identity Not on file Sexual Orientation [...] WITH EGFR, S/P Routine 02/05/2024 10:54 AM ACCOUNT ASSISTANT Other Chest Pain documented in this encounter Results * Creatinine with Estimated GFR (02/05/2024 10:54 AM ACCOUNT ASSISTANT) Creatinine 0.88 0.74 - 1.35 mg/dL 02/05/2024 11:41 AM ACCOUNT ASSISTANT NPRG Estimated GFR (eGFR) >90 >=60 mL/min/BSA 02/05/2024 11:41 AM ACCOUNT ASSISTANT NPRG Comment: Estimated GFR calculated using the 2020 CKD_EPI creatinine equation. Blood (Blood, Venous) 02/05/2024 10:54 AM ACCOUNT ASSISTANT 02/05/2024 11:17 AM ACCOUNT ASSISTANT us Jaya Little M.D., Ph.D. LAB BLOOD ADD-ON Final Result [facility] [address] [place] [address], [place] NPRG [facility] [address] [place] [address] documented in this encounter Visit Diagnoses Diagnosis Other Chest Pain documented in this encounter Care Teams Building Performance Consultant Relationship Specialty Start Date End Date None Reported, Pcp PCP - General Family Medicine 11/06/23 documented as of this encounter
--- OUTSIDE RECORDS SUMMARY | 2024-03-22 16:41 | XMS_ITS | Clinical Summary ---
Author Organization [facility] Address [place], [place] [address] Care Team Providers Care Marine Rigger Name Role Phone Nathan Allen MD Primary Care Provider [phone] Allergies No known active allergies Medications Multivitamins with Minerals capsule Take by mouth. 02/03/2013 Active vitamin B comp and vit C no.6 (VITAMIN B COMP WITH VIT C NO.6 ORAL) Take by mouth. Active Arginine HCl, L-Arg HCl,,Bulk, 100 % powd Take by mouth. Active calcium carbonate ([id number]) 500 mg calcium (1,250 mg) tablet Take [...] Type Department Care Team Description 03/02/2024 Telephone [facility] [address] [facility] [address] [place] [address] Jaya Little MD Results 02/22/2024 Telephone [facility] [address] [facility] [address] [place] [address] Jaya Little MD Results 02/11/2024 10:30 AM RUGBY UNION FOOTBALLER Ancillary Procedure [facility] [address] [place] [address] 02/11/2024 Travel 02/02/2024 Orders Only [facility] [address] [place] [address] Jaya Little MD <No scans attached> 02/02/2024 Telephone [facility] [address] [place] [address] Jaya Little MD Cardiology Appointment 01/21/2024 1:30 PM RUGBY UNION FOOTBALLER Office Visit [facility] [address] [place] [address] Jaya Little MD Consult from Last 3 [...] on file Legal Sex Male 7:07 AM RUGBY UNION FOOTBALLER Gender Identity Not on file Sexual Orientation Not on file Obstetrics History Last Filed Vital Signs Vital Sign Reading Time Taken Comments Blood Pressure 121/83 01/21/2024 1:28 PM RUGBY UNION FOOTBALLER Pulse 56 02/02/2018 9:22 AM RUGBY UNION FOOTBALLER Temperature - - Respiratory Rate - - Oxygen Saturation 97% 01/21/2024 1:28 PM RUGBY UNION FOOTBALLER Inhaled Oxygen Concentration - - Weight 63.5 kg (140 lb) 01/21/2024 1:28 PM RUGBY UNION FOOTBALLER Height 170.2 cm (5' 7) 01/21/2024 1:28 PM RUGBY UNION FOOTBALLER Body Mass Index 21.93 01/21/2024 1:28 PM RUGBY UNION FOOTBALLER Plan of Treatment Health Maintenance Due Date [...] RAD DUAL READ Routine 02/11/2024 10:43 AM RUGBY UNION FOOTBALLER Ascending aorta dilatation (HC) Chest pain, unspecified type Bicuspid aortic valve CT CARDIAC CORONARY ARTERIES RAD DUAL READ Routine 02/11/2024 10:43 AM RUGBY UNION FOOTBALLER Ascending aorta dilatation (HC) Chest pain, unspecified type Bicuspid aortic valve LIPID PANEL W REFLEX MEASURED LDL Routine 02/02/2018 10:06 AM RUGBY UNION FOOTBALLER Lipid screening from Last 3 Months or Most Recently Relevant to Health Maintenance Results * CT CARDIAC CORONARY ARTERIES DUAL READ (02/11/2024 10:43 AM RUGBY UNION FOOTBALLER) Anatomical Region Laterality Modality HEART Computed Tomogra phy 02/11/2024 10:3 5 AM RUGBY UNION FOOTBALLER Impressions 02/11/2024 4:11 PM RUGBY UNION FOOTBALLER 1. Please see dedicated cardiac imaging report. The aorta is also reported by cardiology. 2. No acute or suspicious extracardiac imaging abnormality. Please note that all CT scans at this facility use dose modulation, iterative reconstruction, and/or weight-based dosing when appropriate to reduce radiation dose to as low as reasonably achievable. Dictated by: Herrera Mcfarlane MD @ 02/11/2024 12:27:56 Narrative 02/11/2024 4:11 PM RUGBY UNION FOOTBALLER [facility] Cardiac CT Report Name: HERRERA ESTRADA : Scan Date: Accession Number: [id number] Status: Final Electronically signed by Gurinder Ledbetter [...] TYPE: Calcium score, Coronary CT Angiography SCANNER INSURANCE AGENCY SALES MANAGER: [employer] SCANNER MODEL: [employer] DOSE REDUCTION ALGORITHM: Helical with dose modulation [...] BISHOP TECHNOLOGIST: Marj Murillo BILLING Patient Account [id number] ICD10 Codes I77.810, R07.9, Q23.81 Report generated by [employer], a product of [employer] For [...] conjunction with the services provided by the [facility] ([facility]). FINDINGS Mediastinal structures: Unremarkable with no [...] CHEST - DUAL READ (02/11/2024 10:43 AM RUGBY UNION FOOTBALLER) Anatomical Region Laterality Modality CHEST Computed Tomogra phy 02/11/2024 10:3 5 AM RUGBY UNION FOOTBALLER Narrative 02/11/2024 1:11 PM RU[employer]Y UNION FOOTBALLER [facility] Cardiac CT Report Name: HERRERA ESTRADA : Scan Date: Accession Number: [id number] Status: Final Electronically signed by Gurinder Ledbetter [...] TYPE: Calcium score, Coronary CT Angiography SCANNER INSURANCE AGENCY SALES MANAGER: [employer] SCANNER MODEL: [employer] DOSE REDUCTION ALGORITHM: Helical with dose modulation [...] BISHOP TECHNOLOGIST: Marj Murillo BILLING Patient Account [id number] ICD10 Codes I77.810, R07.9, Q23.81 Report generated by [employer], a product of [employer] Up Over read: Findings: No pulmonary emboli. No mediastinal or hilar adenopathy. The lungs show mild bibasilar atelectasis. No focal pulmonary opacities. No pneumothorax. No other bony or soft tissue abnormalities identified. Impression: No acute abnormalities of the extracardiac/extravascular structures identified. Jaya Little MD CT Final Result * LIPID PANEL W REFLEX MEASURED LDL (02/02/2018 10:06 AM RUGBY UNION FOOTBALLER) [facility] CHOLESTEROL,TOTAL 186 100 - 199 mg/dL 02/03/2018 12:39 AM RUGBY UNION FOOTBALLER [facility] TRIGLYCERIDES 106 <150 mg/dL 02/03/2018 12:39 AM [facility] HDL CHOLESTEROL 51 >40 mg/dL 8 12:39 AM RUGBY UNION FOOTBALLER [facility] NON-HDL CHOLESTEROL 135 <145 mg/dl 02/03/2018 12:39 AM RUGBY UNION FOOTBALLER [facility] CHOL/HDL RATIO 3.65 <4.50 02/03/2018 12:39 AM RUGBY UNION FOOTBALLER [facility] LDL CHOLESTEROL 114 <=130 mg/dL 02/03/2018 12:39 AM RUGBY UNION FOOTBALLER [facility] PROVIDER ORDERED STATUS RANDOM 02/03/2018 12:39 AM RUGBY UNION FOOTBALLER [facility] Blood BLOOD SPECIMEN / Unknown Venipuncture / Unknown 02/02/2018 10:06 AM RUGBY UNION FOOTBALLER 02/02/2018 10:07 AM RU[employer]Y UNION FOOTBALLER Florentin De León MD CHEMISTRY Final R esult [facility] [address] [place] [address], from Last 3 Months or Most Recently Relevant to Health Maintenance Insurance [facility] WORK[employer] COMP Care Teams Marine Rigger Relationship Specialty Start Date End Date Nathan Allen MD [address] [place] [address] PCP - General Family Practice 01/21/24
--- OUTSIDE RECORDS SUMMARY | 2024-03-22 16:41 | XMS_ITS | Encounter Summary ---
Author Organization [place] Address [address] [place] [address] Care Team Providers Care Traffic Sign Supervisor Name Role Phone Doctor, None Primary Care Provider Unavailabl e Fuad Reed MD Primary Care Provider [phone] Fuad Reed MD Unavailable Fuad Reed MD Unavailable Velia Casanova PA-C Unavailable Fuad Reed MD Unavailable Encounter Details Date Type Department Care Team (Late st Contact Info) Description 02/11/2012 [facility] [address] [address] [facility] Social History Tobacco Use Types Packs/Day Years Used Date Smoking Tobacco: Every Day Cigarettes Smokeless Tobacco: Never Alcohol Use Standard Drinks/Week Comments Yes 0 (1 standard drink = 0.6 oz pur e alcohol) occ Sex and Gender Information Value Date Recorded Sex Assigned at Not on file Legal Sex Male 3:37 AM GAMB CUTTER Gender Identity Not on file Sexual Orientation Not on file documented as of this encounter Plan of Treatment Not on file documented as of this encounter Visit Diagnoses Not on filedocumented in this encounter Additional Health Concerns Infection Onset Date Last Indicated Resolved Time Rule Out COVID-19 02/22/2021 02/22/2021 02/22/2021 11:46 PM GAMB CUTTER COVID-19 02/22/2021 02/22/2021 03/15/2021 11:3 9 PM GAMB CUTTER documented as of this encounter Care Teams Traffic Sign Supervisor Relationship Specialty Start Date End Date Josh Montanez MD PCP - General 04/02/01 02/02/13 Fuad Reed MD [address] [place] [id number] PCP - General Family Practice 02/03/13 Fuad Reed MD [address] [place] [address] PCP - Assigned PCP 05/04/16 04/20/18 Fuad Reed MD [address] [place] [address] Assigned PCP 05/04/16 08/28/18 Velia Casanova PA-C [address] [place] [address] Assigned PCP 08/29/18 08/20/19 Fuad Reed MD [address] [place] [address] Assigned PCP 08/21/19 documented as of this encounter
--- OUTSIDE RECORDS SUMMARY | 2024-03-22 16:41 | XMS_ITS | Clinical Summary ---
Author Organization [facility] Address [address] [place] [address] Care Team Providers Care Steno Pool Supervisor Name Role Phone None Reported, Pcp Primary Care Provider Unavail able Source Comments Patient records contain information from all sites at [facility]. For routine questions regarding patient records, call [phone] during business hours, M-F 8:00 AM - 5:00 PM Central Time. Record requests for emergency care only can be directed to [phone] at any time.[facility] Allergies No known active allergies Medications EPINEPHrine [...] Department Care Team Description 02/05/2024 10:48 AM ARABIC TRANSLATOR - 02/05/2024 11:59 PM ARABIC TRANSLATOR Hospital Encounter Department of Laboratory Medicine in [place], [place] [address] [place] [id number] Jaya Little M.D., Ph.D. Other Chest Pain Discharge Disposition: Home or Self Care 12/28/2023 1:12 PM ARABIC TRANSLATOR - 12/28/2023 11:59 PM ARABIC TRANSLATOR Hospital Encounter Department of Cardiovascular Diseases in [address] [address] Nathan Allen M.D. Bicuspid Aortic [...] on file Legal Sex Male 4:52 PM ARABIC TRANSLATOR Gender Identity Not on file Sexual Orientation [...] WITH EGFR, S/P Routine 02/05/2024 10:54 AM ARABIC TRANSLATOR Other Chest Pain (TTE) 2D ECHO DOPPLER COLOR Routine 12/28/2023 2:40 PM ARABIC TRANSLATOR Bicuspid Aortic Valve (HCC) COMPREHENSIVE METABOLIC PANEL, S/P STAT 11/06/2023 10:51 AM CDT from Last 3 Months or Most Recently Relevant to Health Maintenance Results * Creatinine with Estimated GFR (02/05/2024 10:54 AM ARABIC TRANSLATOR) Creatinine 0.88 0.74 - 1.35 mg/dL 02/05/2024 11:41 AM ARABIC TRANSLATOR NPRG Estimated GFR (eGFR) >90 >=60 mL/min/BSA 02/05/2024 11:41 AM ARABIC TRANSLATOR NPRG Comment: Estimated GFR calculated using the 2020 CKD_EPI creatinine equation. Blood (Blood, Venous) 02/05/2024 10:54 AM ARABIC TRANSLATOR 02/05/2024 11:17 AM ARABIC TRANSLATOR us Jaya Little M.D., Ph.D. LAB BLOOD ADD-ON Final Result [facility] [address] [place] [address], [facility] NPRG [facility] [address] [place] [address] * (TTE) 2D ECHO DOPPLER COLOR (12/28/2023 2:40 PM ARABIC TRANSLATOR) Ejection Fraction 67 MC CV EIMS Sinus [...] Region Laterality Modality Echocardiography 12/28/2023 1:13 PM ARABIC TRANSLATOR Impressions 12/28/2023 3:17 PM ARABIC TRANSLATOR Transthoracic outreach echo interpretation. LEFT VENTRICLE:Normal left [...] the Order-Level Documents. Narrative 12/28/2023 3:17 PM ARABIC TRANSLATOR For the complete report, see the Order-Level [...] pericardial effusion. 8. There are no previous [facility] echocardiograms available for comparison. Procedure Note Aleksander [...] pericardial effusion. 8. There are no previous [facility] echocardiograms available forcomparison. Findings Transthoracic outreach echo [...] M.D. LAB BLOOD ADD-ON Final Resul t [facility] [address] [place] [address], [facility] NPRG [facility] [address] [place] [address] from Last 3 Months or Most Recently Relevant to Health Maintenance Insurance [facility] Care Teams Steno Pool Supervisor Relationship Specialty Start Date End Date None Reported, Pcp PCP - General Family Medicine 11/06/23
--- OUTSIDE RECORDS SUMMARY | 2024-03-22 16:41 | XMS_ITS | Encounter Summary ---
Author Organization [place] Address [address] [place] [address]. [place] [address] Care Team Providers Care Instructor Of Spanish Name Role Phone Doctor, None Primary Care Provider Unavailabl e Fuad Reed MD Primary Care Provider [phone] Fuad Reed MD Unavailable Fuad Reed MD Unavailable Velia Casanova-Nakia Unavailable Fuad Reed MD Unavailable Encounter Details Date Type Department Care Team (Late st Contact Info) Description 04/01/2011 Office Visit-[facility] [address] [place] [address] [place] [address] [place] [address] [address] [place], [place] [id number] Social History Tobacco Use Types Packs/Day Years Used Date Smoking Tobacco: Every Day Cigarettes Smokeless Tobacco: Never Alcohol Use Standard Drinks/Week Comments Yes 0 (1 standard drink = 0.6 oz pur e alcohol) occ Sex and Gender Information Value Date Recorded Sex Assigned at Not on file Legal Sex Male 3:37 AM TAMALE MAKER Gender Identity Not on file Sexual Orientation Not on file documented as of this encounter Progress Notes * Ryder De Leon MD - 09/24/2011 12:48 PM CDT Progress Note Created by: Ryder De Leon [place] [id number] DATE: 04/01/2011 HERRERA ESTRADA DATE OF : 1965 AGE: [age] years old Referring Physician: NEENA CESPEDES Referring Clinic: [facility] CURRENT DIAGNOSES 1. - Bicuspid Aortic Valve, [...] vasovagal event. 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; Residence - lives in [place] year round; Hours Worked - 40 hours [...] Out COVID-19 02/22/2021 02/22/2021 02/22/2021 11:46 PM TAMALE MAKER COVID-19 02/22/2021 02/22/2021 03/15/2021 11:3 9 PM TAMALE MAKER documented as of this encounter Care Teams Instructor Of Spanish Relationship Specialty Start Date End Date Josh Montanez MD PCP - General 04/02/01 02/02/13 [place] [address] [place] [address] PCP - General Family Practice 02/03/13 [place] [address] [place] [address] PCP - Assigned PCP 05/04/16 04/20/18 [place] [address] [place] [address] Assigned PCP 05/04/16 08/28/18 Velia Casanova PA-C [address] [place] [address] Assigned PCP 08/29/18 08/20/19 [place] [address] [place] [address] [id number] Assigned PCP 08/21/19 documented as of this encounter
--- OUTSIDE RECORDS SUMMARY | 2024-03-22 16:41 | XMS_ITS | Clinical Summary ---
Author Organization [facility] Address [address], [place] [address] Care Team Providers Care Headliner Installer Name Role Phone Thom Chew MD Primary Care Provider Source Comments You are receiving this document as you are listed as the primary care provider,follow-up provider, or the patient has been referred to you for consultation.This is in compliance with the Medicare andZ[facility] City Hospitalcaid EHR Incentive Program,which states Providers who transition their patient to another setting of careor provider of care or refers their patient to another provider of care shouldprovide summary care record for each transition of care or referral. [facility] Allergies No known active allergies Medications Medication [...] (Flucelvax) 12/02/2017 Influenza IIV4 (Quadrivalent ) 0.5mL (72441) 01/03/2023,01/10/2022,01/11/2021, 019,12/01/2016,11/30/2014 PCV20 ([id number]) 02/04/2023 PPSV23 (Pneumovax) 01/29/2017 Td 01/26/2006 Td [...] 36.8 C (98.2 F) 03/01/2021 3:20 PM CARGO CHECKER Respiratory Rate 16 12/08/2009 4:48 PM CDT Oxygen Saturation 98% 03/01/2021 3:20 PM CARGO CHECKER Inhaled Oxygen Concentration - - Weight 63.8 kg (140 lb 9.6 oz) 11/12/2023 3:56 P M CDT Height 171.5 cm (5' 7.5) 03/30/2023 11:08 AM CS T Body Mass Index 21.7 03/30/2023 11:08 AM CARGO CHECKER Plan of Treatment Health Maintenance Due Date [...] CONT LUNG SCREENING Routine 02/14/2023 1:35 PM CARGO CHECKER Smoking greater than 20 pack years (HRC) PROSTATIC SPECIFIC ANTIGEN(SCREEN) Routine 02/04/2023 9:35 AM CARGO CHECKER Encounter for prostate cancer screening HIV 1/2 AG/AB 4TH GEN Routine 02/04/2023 9:35 AM CARGO CHECKER Screening for HIV (human immunodeficiency virus) HEPATITIS C ANTIBODY, WITH REFLEX Routine 02/04/2023 9:35 AM CARGO CHECKER Need for hepatitis C screening test from Last 3 Months or Most Recently Relevant to Health Maintenance Results * Lipid Panel and Direct LDL (If Needed) (05/30/2023 11:33 AM CDT) Cholesterol 124 0 - 199 mg/dL 05/30/2023 3:46 PM CDT [facility] Triglyceride 60 <=149 mg/dL 05/30/2023 3:46 PM T [facility] HDL Cholesterol 55 >=40 mg/dL 3:46 PM T [facility] LDL, Calculated 57 <130 mg/dL 3:46 PM CDT [facility] Non HDL Chol, Calculated 69 <=159 mg/dL 05/30/2023 3:46 PM T [facility] Cholesterol/HDL Ratio 2.3 <=5.0 05/30/2023 3:46 PM T [facility] Hours Fasting 12.0 8 - 12 Hours 05/30/2023 3:46 PM CDT [facility] Blood Venipuncture / Unknown 05/30/2023 11:33 AM CDT 05/30/2023 11:33 AM CDT Ryder Marinelli DO LAB_1 [facility] [address] [place] [address] [address] [place] [address], [facility] * CT Chest WO IV Cont Lung Screening (02/14/2023 1:35 PM CARGO CHECKER) Anatomical Region Laterality Modality Chest, Lung Computed Tomogra phy 02/14/2023 1:32 PM CARGO CHECKER Impressions 02/14/2023 2:24 PM CARGO CHECKER COMPARISON: None. TECHNIQUE: Images through the chest [...] 1/2 Ag/Ab 4th Generation (02/04/2023 9:35 AM CARGO CHECKER) HIV 1/2 Antigen/Antib haleigh (4th generation) Negative (Non Reactive) Negative (Non Reactive) 02/04/2023 5:41 PM CARGO CHECKER [facility] Comment:HIV-1 p24 Antigen an d HIV-1/HIV-2 Antibody not detected Blood Venipuncture / Unknown 02/04/2023 9:35 AM CARGO CHECKER 02/04/2023 9:35 AM CARGO CHECKER Thom Chew MD LAB_1 [facility] [address] [place], [place] [address] * Prostatic Specific Antigen (Screen) (02/04/2023 9:35 AM CARGO CHECKER) Prostatic Specific Antigen 0.5 0.0 - 4.0 ng/mL 02/04/2023 5:06 PM CARGO CHECKER [facility] Blood Venipuncture / Unknown 02/04/2023 9:35 AM CARGO CHECKER 02/04/2023 9:35 AM CARGO CHECKER Narrative [facility] - 02/04/2023 5:06 PM CARGO CHECKER The Moore PSA Chemiluminescent immunoassay is used. Results obtained with different test methods or kits cannot be used interchangeably. Thom Chew MD LAB_1 Performing Organization Address [facility] de Phone Number [facility] [address] [place] [address] * Hepatitis C Antibody, with Reflex (02/04/2023 9:35 AM CARGO CHECKER) Pathologist [facility] Hepatitis C Antibody Negative (Non Reactive) Negative (Non Reactive) 02/04/2023 5:41 PM CARGO CHECKER [facility] Comment:Antibodies to HCV no t detected. Does not exclude the possiblity of exposure to HCV. Blood Venipuncture / Unknown 02/04/2023 9:35 AM CARGO CHECKER 02/04/2023 9:35 AM CARGO CHECKER Thom Chew MD LAB_1 Performing Organization Address [facility] Co de Phone Number [facility] [address] [place] [address] from Last 3 Months or Most Recently Relevant to Health Maintenance Care Teams Headliner Installer Relationship Specialty Start Date End Date Thom Chew MD [address] [place] [phone] PCP - General Family Practice 12/30/23
--- OUTSIDE RECORDS SUMMARY | 2024-03-22 16:42 | XMS_ITS | Clinical Summary ---
Author Organization [place] Address [address] [place] [address] Care Team Providers Care Cad Design Engineer Name Role Phone Fuad Reed MD Primary Care Provider [phone] Fuad Reed MD Unavailable Allergies No known active allergies Medications Multiple Vitamin (MULTIVITAMIN S) CAPS Take by mouth daily 3 Active VITAMIN E COMPLEX PO Take by mouth daily Active Pyridoxine HCl (VITAMIN B6 PO) Take by mouth daily Active Cyanocobalamin (VITAMIN B-12 PO) Take by mouth daily Active Calhoun-3 Fatty Acids (OMEGA-3 FISH OIL PO) Take [...] on file Legal Sex Male 3:37 AM MORTGAGE CLERK Gender Identity Not on file Sexual Orientation Not on file 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 Not on file Not on file Not on file Last Filed Vital Signs Vital Sign Reading Time Taken Comments Blood Pressure 102/60 02/13/2022 9:05 AM MORTGAGE CLERK Pulse 69 02/13/2022 9:05 AM MORTGAGE CLERK Temperature 36.1 C (97 F) 02/13/2022 9:05 AM MORTGAGE CLERK Respiratory Rate 20 10/18/2020 7:07 AM CDT Oxygen Saturation 98% 02/13/2022 9:05 AM MORTGAGE CLERK Inhaled Oxygen Concentration - - Weight 67.1 kg (148 lb) 02/13/2022 9:05 AM MORTGAGE CLERK Height 172.7 cm (5' 8) 02/13/2022 9:05 AM MORTGAGE CLERK Body Mass Index 22.5 02/13/2022 9:05 AM MORTGAGE CLERK Plan of Treatment Health Maintenance Due Date [...] CARE PLANNING 09/19/2024 09/20/2019 GLUCOSE 02/13/2025 02/13/2022, 03/2020, 09/20/2019, Additional history exists COLONOSCOPY 06/13/2026 06/13/2016, 05/18, 03/02/2014, Additional history exists COLORECTAL CANCER SCREENING 06/13/2026 LIPID 02/13/2027 02/13/2022, 03/2020, 09/20/2019, Additional history exists HEPATITIS C [...] CANCER SCREEN FIT Routine 02/14/2022 9:00 AM MORTGAGE CLERK Routine general medical examination at a health care facility Polyp of colon, unspecified part of colon, unspecified type Screen for colon cancer COMPREHENSIVE METABOLIC PANEL Routine 02/13/2022 9:56 AM MORTGAGE CLERK Routine general medical examination at a health care facility CARDIOVASCULAR SCREENING; LDL GOAL LESS THAN 130 Osteopenia of multiple sites Raynaud's disease without gangrene Medication monitoring encounter LIPID REFLEX TO DIRECT LDL PANEL Routine 02/13/2022 9:56 AM MORTGAGE CLERK Routine general medical examination at a health care facility Bicuspid aortic valve CARDIOVASCULAR SCREENING; LDL GOAL LESS THAN 130 Aortic root dilation Ascending aorta dilatation History of cardiac murmur Medication monitoring encounter COLONOSCOPY Routine 06/13/2016 11:47 AM CDT HIV ANTIGEN ANTIBODY COMBO Routine 04/28/2016 5:28 PM CDT Diarrhea, unspecified type Nausea Stomach cramps, generalized Weight loss HEPATITIS C ANTIBODY Routine 02/03/2013 8:45 AM MORTGAGE CLERK Routine general medical examination at a health care facility from Last 3 Months or Most Recently Relevant to Health Maintenance Results * Fecal colorectal cancer screen FIT (02/14/2022 9:00 AM MORTGAGE CLERK) Pathologist [facility] Occult Blood Screen FIT Negative Negative 02/18/2022 8:57 PM MORTGAGE CLERK [facility] Stool RECTAL CONTENTS / Unknown Non-blood Collection / Unknown 02/14/2022 9:00 AM MORTGAGE CLERK 02/18/2022 5:04 PM MORTGAGE CLERK us Fuad Reed MD LAB - STOOLS ORDERABLES Final Re sult [facility] [address] [facility], [address] [phone], [facility] [phone] * (ABNORMAL) Lipid panel reflex to direct LDL Fasting (02/13/2022 9:56 AM MORTGAGE CLERK) Cholesterol 200(H) <200 mg/dL 02/13/2022 5:34 PM MORTGAGE CLERK [facility] Triglycerides 157(H) <150 mg/dL 02/13/2022 5:34 PM MORTGAGE CLERK [facility] Direct Measure HDL 45 >=40 mg/dL 02/13/2022 5:34 PM MORTGAGE CLERK [facility] LDL Cholesterol Calculated 124(H) <=100 mg/dL 02/13/2022 5:34 PM MORTGAGE CLERK [facility] Non HDL Cholesterol 155(H) <130 mg/dL 02/13/2022 5:34 PM MORTGAGE CLERK [facility] Blood STRUCTURE OF RIGHT UPPER LIMB / Unknown Venipuncture / Unknown 02/13/2022 9:56 AM MORTGAGE CLERK 02/13/2022 9:56 AM MORTGAGE CLERK Narrative [facility] - 02/13/2022 5:34 PM MORTGAGE CLERK Cholesterol Desirable: <200 mg/dL Triglycerides Normal: Less [...] BLOOD ORDERABLES Final Res ult [facility] [address] [facility], [address] [place] [address], [facility] [phone] * Comprehensive metabolic panel (02/13/2022 9:56 AM MORTGAGE CLERK) Sodium 139 136 - 145 mmol/L 02/13/2022 5:34 PM MORTGAGE CLERK [facility] Potassium 4.4 3.4 - 5.3 mmol/L 02/13/2022 5:34 PM MORTGAGE CLERK [facility] Chloride 102 98 - 107 mmol/L 02/13/2022 5:34 PM MORTGAGE CLERK [facility] Carbon Dioxide (CO2) 24 22 - 29 mmol/L 02/13/2022 5:34 PM MORTGAGE CLERK [facility] Anion Gap 13 7 - 15 mmol/L 02/13/2022 5:34 PM MORTGAGE CLERK [facility] Urea Nitrogen 12.4 6.0 - 20.0 mg/dL 02/13/2022 5:34 PM MORTGAGE CLERK [facility] Creatinine 0.94 0.67 - 1.17 mg/dL 02/13/2022 5:34 PM MORTGAGE CLERK [facility] Calcium 9.4 8.6 - 10.0 mg/dL 02/13/2022 5:34 PM MORTGAGE CLERK [facility] Glucose 86 70 - 99 mg/dL 02/13/2022 5:34 PM MORTGAGE CLERK [facility] Alkaline Phosphatase 68 40 - 129 U/L 02/13/2022 5:34 PM MORTGAGE CLERK [facility] AST 23 10 - 50 U/L 02/13/2022 5:34 PM MORTGAGE CLERK [facility] ALT 17 10 - 50 U/L 02/13/2022 5:34 PM MORTGAGE CLERK [facility] Protein Total 7.1 6.4 - 8.3 g/dL 02/13/2022 5:34 PM MORTGAGE CLERK [facility] Albumin 4.4 3.5 - 5.2 g/dL 02/13/2022 5:34 PM MORTGAGE CLERK [facility] Bilirubin Total 0.5 <=1.2 mg/dL 02/13/2022 5:34 PM MORTGAGE CLERK [facility] GFR Estimate >90 >60 mL/min/1.7 3m2 02/13/2022 5:34 PM MORTGAGE CLERK [facility] Comment:Effective January 172020 eGFRcr in adults is calculated using the 2020 CKD-EPI creatinine equation which includes age and gender (Keyanna et al., NEJM, DOI: 10.1056/ONBFag0612813) Blood STRUCTURE OF RIGHT UPPER LIMB / Unknown Venipuncture / Unknown 02/13/2022 9:56 AM MORTGAGE CLERK 02/13/2022 9:56 AM MORTGAGE CLERK us Fuad Reed MD LAB - BLOOD ORDERABLES Final Res ult [facility] [address] [facility], [address] [place] [address], [facility] [phone] * COLONOSCOPY (06/13/2016 11:47 AM CDT) [facility] Signature COLONOSCOPY [facility] Patient Name: Herrera Choi Procedure Date: 06/13/2016 [...] The Olympus Peds Colonoscope Model #PCF-H190L, [place]#136, SN#[id number] was introduced through the anus and advanced [...] screening purposes. Procedure Code(s): --- Professional --- 94149, Colonoscopy, flexible, proximal to splenic flexure; diagnostic, with or without collection of specimen(s) by brushing or washing, with or without colon decompression (separate procedure) Diagnosis Code(s): --- Professional --- R63.4, Abnormal weight loss CPT copyright 2013 [employer]. All rights reserved. The codes documented in this report are preliminary and upon health informatics advisor review may be revised to meet current [...] us Fuad Reed MD PROCEDURES Final Result Performing Organization Address [facility]/ZIP Co de Phone Number RADIOLOGY RESULTS * HIV Antigen Antibody Combo (04/28/2016 5:28 PM CDT) HIV Antigen Antibody Combo Nonreactive HIV-1 p24 Ag & HIV-1/HIV-2 Ab Not Detected NR [facility] Blood specimen (specimen) 04/28/2016 5:28 PM CDT 04/28/2016 5:34 PM CDT us Fuad Reed MD LAB - BLOOD ORDERABLES Final Res ult Performing Organization Address [facility] Co de Phone Number [facility] [address] [place] [address] * Hepatitis C antibody (02/03/2013 8:45 AM MORTGAGE CLERK) Hepatitis C Antibody Negative NEG [facility] Blood specimen (specimen) 02/03/2013 8:45 AM MORTGAGE CLERK 02/03/2013 8:46 AM MORTGAGE CLERK us Fuad Reed MD LAB - BLOOD ORDERABLES Final Res ult Performing Organization Address [facility] Co de Phone Number [facility] [address] [place], [place] [phone] [place] [address] from Last 3 Months or Most Recently Relevant to Health Maintenance Insurance [employer] OUT OF STATE Care Teams Cad Design Engineer Relationship Specialty Start Date End Date Fuad Reed MD [address] [place] [address] [phone] PCP - General Family Practice 02/03/13 Fuad Reed MD [address] [place] [address] [phone] Assigned PCP 08/21/19
--- OUTSIDE RECORDS SUMMARY | 2024-03-22 16:42 | XMS_ITS | Referral Summary ---
Author Organization [place] Address [address] [place] [address] Care Team Providers Care Board Machine Set Up Operator Name Role Phone Fuad Reed MD Primary Care Provider [phone] Fuad Reed MD Unavailable Allergies No known active allergies Medications Multiple Vitamin (MULTIVITAMIN S) CAPS Take by mouth daily 3 Active VITAMIN E COMPLEX PO Take by mouth daily Active Pyridoxine HCl (VITAMIN B6 PO) Take by mouth daily Active Cyanocobalamin (VITAMIN B-12 PO) Take by mouth daily Active [employer] [facility]-3 Fatty Acids (OMEGA-3 FISH OIL PO) Take [...] on file Legal Sex Male 3:37 AM V BLOCK SAW OPERATOR Gender Identity Not on file Sexual Orientation Not on file 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 Not on file Not on file Last Filed Vital Signs Vital Sign Reading Time Taken Comments Blood Pressure 102/60 02/13/2022 9:05 AM V BLOCK SAW OPERATOR Pulse 69 02/13/2022 9:05 AM V BLOCK SAW OPERATOR Temperature 36.1 C (97 F) 02/13/2022 9:05 AM V BLOCK SAW OPERATOR Respiratory Rate 20 10/18/2020 7:07 AM CDT Oxygen Saturation 98% 02/13/2022 9:05 AM V BLOCK SAW OPERATOR Inhaled Oxygen Concentration - - Weight 67.1 kg (148 lb) 02/13/2022 9:05 AM V BLOCK SAW OPERATOR Height 172.7 cm (5' 8) 02/13/2022 9:05 AM V BLOCK SAW OPERATOR Body Mass Index 22.5 02/13/2022 9:05 AM V BLOCK SAW OPERATOR Plan of Treatment Not on file Procedures Procedure Name Priority Date/Time Associated Diagnosis Comments FECAL COLORECTAL CANCER SCREEN FIT Routine 02/14/2022 9:00 AM V BLOCK SAW OPERATOR Routine general medical examination at a health care facility Polyp of colon, unspecified part of colon, unspecified type Screen for colon cancer COMPREHENSIVE METABOLIC PANEL Routine 02/13/2022 9:56 AM V BLOCK SAW OPERATOR Routine general medical examination at a health care facility CARDIOVASCULAR SCREENING; LDL GOAL LESS THAN 130 Osteopenia of multiple sites Raynaud's disease without gangrene Medication monitoring encounter LIPID REFLEX TO DIRECT LDL PANEL Routine 02/13/2022 9:56 AM V BLOCK SAW OPERATOR Routine general medical examination at a health care facility Bicuspid aortic valve CARDIOVASCULAR SCREENING; LDL GOAL LESS THAN 130 Aortic root dilation Ascending aorta dilatation History of cardiac murmur Medication monitoring encounter COLONOSCOPY Routine 06/13/2016 11:47 AM CDT HIV ANTIGEN ANTIBODY COMBO Routine 04/28/2016 5:28 PM CDT Diarrhea, unspecified type Nausea Stomach cramps, generalized Weight loss HEPATITIS C ANTIBODY Routine 02/03/2013 8:45 AM V BLOCK SAW OPERATOR Routine general medical examination at a health care facility from Last 3 Months or Most Recently Relevant to Health Maintenance Results * Fecal colorectal cancer screen FIT (02/14/2022 9:00 AM V BLOCK SAW OPERATOR) Occult Blood Screen FIT Negative Negative 02/18/2022 8:57 PM V BLOCK SAW OPERATOR [facility] Stool RECTAL CONTENTS / Unknown Non-blood Collection / Unknown 02/14/2022 9:00 AM V BLOCK SAW OPERATOR 02/18/2022 5:04 PM V BLOCK SAW OPERATOR us Fuad Reed MD LAB - STOOLS ORDERABLES Final Re sult [facility] Lab [address] [facility], [address] [phone], [facility] [phone] * (ABNORMAL) Lipid panel reflex to direct LDL Fasting (02/13/2022 9:56 AM V BLOCK SAW OPERATOR) Cholesterol 200(H) <200 mg/dL 02/13/2022 5:34 PM V BLOCK SAW OPERATOR [facility] Triglycerides 157(H) <150 mg/dL 02/13/2022 5:34 PM V BLOCK SAW OPERATOR [facility] Direct Measure HDL 45 >=40 mg/dL 02/13/2022 5:34 PM V BLOCK SAW OPERATOR [facility] LDL Cholesterol Calculated 124(H) <=100 mg/dL 02/13/2022 5:34 PM V BLOCK SAW OPERATOR [facility] Non HDL Cholesterol 155(H) <130 mg/dL 02/13/2022 5:34 PM V BLOCK SAW OPERATOR [facility] Blood STRUCTURE OF RIGHT UPPER LIMB / Unknown Venipuncture / Unknown 02/13/2022 9:56 AM V BLOCK SAW OPERATOR 02/13/2022 9:56 AM V BLOCK SAW OPERATOR Narrative [facility] - 02/13/2022 5:34 PM V BLOCK SAW OPERATOR Cholesterol Desirable: <200 mg/dL Triglycerides Normal: Less [...] BLOOD ORDERABLES Final Res ult [facility] [address] [facility], [address] [place] [phone], [facility] [phone] * Comprehensive metabolic panel (02/13/2022 9:56 AM V BLOCK SAW OPERATOR) Sodium 139 136 - 145 mmol/L 02/13/2022 5:34 PM V BLOCK SAW OPERATOR [facility] Potassium 4.4 3.4 - 5.3 mmol/L 02/13/2022 5:34 PM V BLOCK SAW OPERATOR [facility] Chloride 102 98 - 107 mmol/L 02/13/2022 5:34 PM V BLOCK SAW OPERATOR [facility] Carbon Dioxide (CO2) 24 22 - 29 mmol/L 02/13/2022 5:34 PM V BLOCK SAW OPERATOR [facility] Anion Gap 13 7 - 15 mmol/L 02/13/2022 5:34 PM V BLOCK SAW OPERATOR [facility] Urea Nitrogen 12.4 6.0 - 20.0 mg/dL 02/13/2022 5:34 PM V BLOCK SAW OPERATOR [facility] Creatinine 0.94 0.67 - 1.17 mg/dL 02/13/2022 5:34 PM V BLOCK SAW OPERATOR [facility] Calcium 9.4 8.6 - 10.0 mg/dL 02/13/2022 5:34 PM V BLOCK SAW OPERATOR [facility] Glucose 86 70 - 99 mg/dL 02/13/2022 5:34 PM V BLOCK SAW OPERATOR [facility] Alkaline Phosphatase 68 40 - 129 U/L 02/13/2022 5:34 PM V BLOCK SAW OPERATOR [facility] AST 23 10 - 50 U/L 02/13/2022 5:34 PM V BLOCK SAW OPERATOR [facility] ALT 17 10 - 50 U/L 02/13/2022 5:34 PM V BLOCK SAW OPERATOR [facility] Protein Total 7.1 6.4 - 8.3 g/dL 02/13/2022 5:34 PM V BLOCK SAW OPERATOR [facility] Albumin 4.4 3.5 - 5.2 g/dL 02/13/2022 5:34 PM V BLOCK SAW OPERATOR [facility] Bilirubin Total 0.5 <=1.2 mg/dL 02/13/2022 5:34 PM V BLOCK SAW OPERATOR [facility] GFR Estimate >90 >60 mL/min/1.7 3m2 02/13/2022 5:34 PM V BLOCK SAW OPERATOR [facility] Comment:Effective January 172020 eGFRcr in adults is calculated using the 2020 CKD-EPI creatinine equation which includes age and gender (Keyanna et al., NEJM, DOI: 10.1056/CGEFqm2692875) Blood STRUCTURE OF RIGHT UPPER LIMB / Unknown Venipuncture / Unknown 02/13/2022 9:56 AM V BLOCK SAW OPERATOR 02/13/2022 9:56 AM V BLOCK SAW OPERATOR us Fuad Reed MD LAB - BLOOD ORDERABLES Final Res ult [facility] Core Lab [address] [facility], [address] [address], [facility] [phone] * COLONOSCOPY (06/13/2016 11:47 AM CDT) [facility] Signature COLONOSCOPY [facility] Patient Name: Herrera Choi Procedure Date: [...] The Olympus Peds Colonoscope Model #[id number]-H190L, [place]#136, SN#[id number] was introduced through the anus and advanced [...] screening purposes. Procedure Code(s): --- Professional --- 70215, Colonoscopy, flexible, proximal to splenic flexure; diagnostic, with or without collection of specimen(s) by brushing or washing, with or without colon decompression (separate procedure) Diagnosis Code(s): --- Professional --- R63.4, Abnormal weight loss CPT copyright 2013 [employer]. All rights reserved. The codes documented in this report are preliminary and upon automotive artist review may be revised to meet current [...] Ag & HIV-1/HIV-2 Ab Not Detected NR [facility] Blood specimen (specimen) 04/28/2016 5:28 PM CDT 04/28/2016 5:34 PM CDT Fuad Reed MD LAB - BLOOD ORDERABLES Final Res ult Performing Organization Address [facility] Co de Phone Number [facility] [address] [place] [address] * Hepatitis C antibody (02/03/2013 8:45 AM V BLOCK SAW OPERATOR) Hepatitis C Antibody Negative [facility] Blood specimen (specimen) 02/03/2013 8:45 AM V BLOCK SAW OPERATOR 02/03/2013 8:46 AM V BLOCK SAW OPERATOR us Fuad Reed MD LAB - BLOOD ORDERABLES Final Res ult Performing Organization Address [facility] de Phone Number [address] from Last 3 Months or Most Recently Relevant to Health Maintenance Insurance [facility] OUT [facility] STATE Care Teams Board Machine Set Up Operator Relationship Specialty Start Date End Date Fuad Reed MD [address] [place] [id number] PCP - General Family Practice 02/03/13 Fuad Reed MD [address] [place] [address] Assigned PCP 08/21/19
--- OUTSIDE RECORDS SUMMARY | 2024-03-22 16:42 | XMS_ITS | Encounter Summary ---
Author Organization [place] Address [address] [place] [address] Care Team Providers Care Supervisor Power Reactor Name Role Phone Fuad Reed MD Primary Care Provider [phone] Fuad Reed MD Unavailable Reason for Visit * Reason Onset Date Comments Appointment 02/13/2022 Bicuspid aortic valve. 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 No / Unsure 02/13/2022 8:38 AM DUMP TRUCK OPERATOR documented as of this encounter Miscellaneous Notes * Telephone Encounter - Liat Santoyo - 02/13/2022 1:24 PM CST [facility] Call Center Phone Message May a detailed message be left on voicemail: yes Reason for Call: Appointment Intake Referring Provider Name: Dr. Fuad Reed Diagnosis and/or Symptoms: Bicuspid aortic valve Please call pt to coordinate Echo/ appt. Action Taken: Other: cardio Travel Screening: Not Applicable TRUCK OPERATOR documented in this encounter Plan of Treatment Not on file documented as of this encounter Visit Diagnoses Not on filedocumented in this encounter Care Teams Supervisor Power Reactor Relationship Specialty Start Date End Date Fuad Reed MD [address] [place] [address] PCP - General Family Practice 02/03/13 Fuad Reed MD [address] [place] [address] Assigned PCP 08/21/19 documented as of this encounter
--- OUTSIDE RECORDS SUMMARY | 2024-03-22 16:42 | XMS_ITS | Encounter Summary ---
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 No / Unsure 03/31/2022 1:54 PM COOK CAMP documented as of this encounter Plan of Treatment Not on file documented as of this encounter Visit Diagnoses Not on filedocumented in this encounter Care Teams Water Treatment Technician Relationship Specialty Start Date End Date Fuad Reed MD [address] [place] [address] PCP - General Family Practice 02/03/13 Fuad Reed MD [address] [place] [address] Assigned PCP 08/21/19 documented as of this encounter
--- OUTSIDE RECORDS SUMMARY | 2024-03-22 16:42 | XMS_ITS | Encounter Summary ---
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 No / Unsure 03/31/2022 1:54 PM MUSEUM ARCHIVIST documented as of this encounter Plan of Treatment Not on file documented as of this encounter Visit Diagnoses Not on filedocumented in this encounter Care Teams Talent Sourcing Specialist Relationship Specialty Start Date End Date Fuad Reed MD [address] [place] [address] PCP - General Family Practice 02/03/13 Fuad Reed MD [address] [place] [address] Assigned PCP 08/21/19 documented as of this encounter
== END 2024-03-22 17:20 | disposition home or self-care (01) ==
PROVIDERS: Emergency Provider Emergency Medicine
DX: S01.01XA Laceration without foreign body of scalp, initial encounter (principal); W22.8XXA Striking against or struck by other objects, initial encounter; Y93.H3 Activity, building and construction; Y99.0 Civilian activity done for income or pay
CPT/HCPCS: 70450; 99283